=== PATIENT | female | born 1995 | race African-American/Black ===

== ENCOUNTER 2017-08-21 03:43 | Emergency (ER) | payer OTHER ==
[~2017-08-21] VITALS: Ht 175.3 cm; Wt 77.3 kg
[2017-08-21 03:50] VITALS: Ht 175.3 cm; Wt 77.3 kg
[2017-08-21] MEDS ORDERED: KETOROLAC TROMETHAMINE 30 MG/ML VIAL IV STA (04:22)
--- NOTE | 2017-08-21 04:25 | EMERGENCY ROOM VISIT NOTE ---
History Report prepared by Abril: Ann Rivera Under the Supervision of: Dr. Mayra Mcdaniel D.O. First contact with patient: 03:59 Chief Complaint: ABDOMINAL PAIN Stated Complaint: UPPER STOMACH PAIN/BACK PAIN History of Present Illness The patient is a 21 year old female who presents to the Emergency Room with complaints of abdominal pain and back pain beginning at 2200 last night. The patient notes the pain is severe, is in the right upper quadrant, and radiates to her back. She states she had a similar pain like this five years ago and it was kidney stones. She denies any diarrhea, vomiting, and alcohol use. Her LNMP was about 2 weeks ago. Source of History: patient Onset: 2200 last night Position: abdomen (RUQ) Quality: other (severe) Associated Symptoms: No vomiting, No diarrhea Note: Denies alcohol use Review of Systems See HPI for pertinent positives & negatives. A total of 10 systems reviewed and were otherwise negative. Past Medical & Surgical No past medical or surgical history. Family History No pertinent family history Social History Smoking Status: Never Smoker Occupation Status: student Current/Historical Medications Scheduled Control Pills ( Control Pills), 1 TAB PO DAILY Allergies Coded Allergies: No Known Allergies (Unverified , 08/21/17) Physical Exam Vital Signs Date Time Temp Pulse Resp B/P (MAP) Pulse Ox O2 Delivery O2 Flow Rate FiO2 08/21/17 06:00 74 18 148/78 98 Room Air 08/21/17 05:29 83 18 123/83 98 08/21/17 04:29 36.8 89 18 137/78 99 Room Air 08/21/17 03:50 36.8 105 18 141/81 99 Room Air Physical Exam General: Appears uncomfortable HEENT: Head - and is normocephalic and atraumatic Pupils are equal, round, and reactive to light. Extraocular eye muscles are intact, and sclera are anicteric. Nose - moist nasal mucosa without discharge. Mouth - moist buccal mucosa. Oropharynx is nonerythematous and there is no tonsillar exudate or edema noted. Neck: Supple; no JVD, nuchal rigidity, cervical lymphadenopathy. Heart: Regular rate and rhythm. There is a normal S1 and S2 with no murmurs, clicks, or gallops appreciated. Lungs: Clear to auscultation bilaterally with no wheezes, rales, or rhonchi. Abdomen: Soft, nondistended, with good bowel sounds. There are no palpable pulsatile masses or hepatosplenomegaly. There is no guarding, rigidity, or rebound noted. Pain to palpation to the epigastrium of her abdomen and upper quadrant. No CVA tenderness Extremities: No evidence of cyanosis, clubbing, or edema. There are easily palpable peripheral pulses. Skin: warm and dry with good turgor and no rashes. Medical Decision & Procedures ER Provider Diagnostic Interpretation: Radiology results as stated below per my review and the radiologist's interpretation: US GALLBLADDER Gallstones. No sonographic evidence of acute cholecystis. Negative sonographic Cunningham's sign. Common bile duct is within normal limits measuring up to 3 mm. The liver and right kidney are unremarkable. Radiologist: Jigar Robin MD. Study ready at 0455 and initial results transmitted at 0519. Laboratory Results 08/21/17 04:10 Red Blood Count 4.60, Mean Corpuscular Volume 87.0, Mean Corpuscular Hemoglobin 29.6, Mean Corpuscular Hemoglobin Concent 34.0, Mean Platelet Volume 11.4 08/21/17 04:10 Test 08/21/17 04:10 White Blood Count 7.91 K/uL (4.8-10.8) Red Blood Count 4.60 M/uL (4.2-5.4) Hemoglobin 13.6 g/dL (12.0-16.0) Hematocrit 40.0 % (37-47) Mean Corpuscular Volume 87.0 fL (80-100) Mean Corpuscular Hemoglobin 29.6 pg (25-34) Mean Corpuscular Hemoglobin Concent 34.0 g/dl (32-36) Platelet Count 244 K/uL (130-400) Mean Platelet Volume 11.4 fL (7.4-10.4) RDW Standard Deviation 40.9 fL (36.4-46.3) RDW Coefficient of Variation 12.8 % (11.5-14.5) Neutrophils % (Manual) 34.0 % Lymphocytes % (Manual) 33.9 % Variant Lymphocytes % (manual) 20.0 % Monocytes % (Manual) 7.8 % Eosinophils % (Manual) 2.6 % Basophils % (Manual) 1.7 % Neutrophils # (Manual) 2.69 K/uL (1.4-6.5) Total Absolute Neutrophils 2.69 K/uL (1.4-6.5) Lymphocytes # (Manual) 2.68 K/uL (1.2-3.4) Absolute Variant Lymphocytes 1.58 K/uL Total Absolute Lymphocytes 4.26 K/uL (1.2-3.4) Monocytes # (Manual) 0.62 K/uL (0.11-0.59) Eosinophils # (Manual) 0.21 K/uL (0-0.5) Basophils # (Manual) 0.13 K/uL (0-0.2) Red Blood Cell Morphology Unremarkable Urine Color YELLOW Urine Appearance CLEAR (CLEAR) Urine pH 7.5 (4.5-7.5) Urine Specific [place] 1.009 (1.000-1.030) Urine Protein NEG (NEG) Urine Glucose (UA) NEG (NEG) Urine Ketones NEG (NEG) Urine Occult Blood NEG (NEG) Urine Nitrite NEG (NEG) Urine Bilirubin NEG (NEG) Urine Urobilinogen NEG (NEG) Urine Leukocyte Esterase NEG (NEG) Urine Test NEG (NEG) Anion Gap 5.0 mmol/L (3-11) Est Creatinine Clear Calc Drug Dose 99.2 ml/min Estimated GFR () 101.1 Estimated GFR (Non- 87.2 BUN/Creatinine Ratio 17.3 (10-20) Calcium Level 9.0 mg/dl (8.5-10.1) Total Bilirubin 0.2 mg/dl (0.2-1) Direct Bilirubin < 0.1 mg/dl (0-0.2) Aspartate Amino Transf (AST/SGOT) 34 U/L (15-37) Alanine Aminotransferase (ALT/SGPT) 42 U/L (12-78) Alkaline Phosphatase 87 U/L (45-117) Total Protein 8.6 gm/dl (6.4-8.2) Albumin 4.1 gm/dl (3.4-5.0) Lipase 360 U/L (73-393) Laboratory results per my review. Medications Administered Medications (Trade) Dose Ordered Sig/[place] Route Start Time Stop Time Status Last Admin Dose Admin Ketorolac Tromethamine (Toradol Inj) 30 mg NOW STAT IV 08/21/17 04:22 08/21/17 04:24 DC 1/28/18 04:28 30 MG Procedure Toradol IV ED Course 0415: Past medical records reviewed. The patient was evaluated in room B8. A complete history and physical exam was performed. IV line was established. Labs were drawn as above. 0422: Toradol Inj 30 mg IV. The patient went for ultrasound of the gallbladder asked described above. 0559: Upon reevaluation, the patient feels much better. I discussed findings and results with her. She verbalized agreement of the treatment plan. She was discharged home. Medical Decision The patient is a 21 year old female who presents to the ED with abdominal pain. Differential diagnosis includes gallbladder disease, kidney stones, pancreatitis , ulcerative disease. Lab results show urinalysis was negative. Urine negative. No leukocytosis, Stable H & and H, normal renal function. Glucose 117. Normal LFTs. Normal lipase. This is a 21-year-old female patient who developed epigastric abdominal pain and right upper quadrant abdominal pain earlier this evening. The patient also noted some pain through the right side of her back. She has had a previous kidney stone thought this might be what was happening. The pain was reproducible in the epigastrium and therefore I did not suspect a kidney stone. Pancreatic enzymes are unremarkable. Gallbladder ultrasound was normal. Upon reevaluation of the patient, her pain has subsided. I encouraged patient to rest and take a bland diet over the next couple of days. She should return here to the emergency department if she develops worsening pain, vomiting or fever. Otherwise, she can follow up with her PCP. Medication Reconcilliation Current Medication List: was personally reviewed by me Blood Pressure Screening Patient's blood pressure: Normal blood pressure Impression Primary Impression: Right upper quadrant abdominal pain Scribe Attestation The scribe's documentation has been prepared under my direction and personally reviewed by me in its entirety. I confirm that the note above accurately reflects all work, treatment, procedures, and medical decision making performed by me. Departure Information Dispostion Home / Self-Care Referrals No Doctor, Assigned (PCP) Forms HOME CARE DOCUMENTATION FORM, IMPORTANT VISIT INFORMATION Patient Instructions My [facility] Incentive Additional Instructions Rest. Take a bland diet. Return to the ER for worsening symptoms. Follow up with PCP if pain persists
[2017-08-21 04:29] VITALS: TEMP 36.8
[2017-08-21 04:58] LABS: HEMOGLOBIN 13.6 g/dL (12.0-16.0); MEAN CORPUSCULAR HEMOGLOBIN 29.6 pg (25-34); MEAN PLATELET VOLUME 11.4 fL (7.4-10.4); PLATELET COUNT 244 K/uL (130-400); RED CELL DISTRIBUTION WIDTH CV 12.8 % (11.5-14.5); RED CELL DISTRIBUTION WIDTH SD 40.9 fL (36.4-46.3); WHITE BLOOD COUNT 7.91 K/uL (4.8-10.8)
[2017-08-21 05:08] LABS: ALBUMIN 4.1 gm/dl (3.4-5.0); ALT/SGPT 42 U/L (12-78); AST/SGOT 34 U/L (15-37); BLOOD UREA NITROGEN 16 mg/dl (7-18); CARBON DIOXIDE 29 mmol/L (21-32); CREATININE 0.93 mg/dl (0.60-1.20); GLUCOSE 117 mg/dl (70-99); LIPASE 360 U/L (73-393); POTASSIUM 3.6 mmol/L (3.5-5.1); SODIUM 136 mmol/L (136-145)
[2017-08-21 05:11] LABS: ALKALINE PHOSPHATASE 87 U/L (45-117); TOTAL PROTEIN 8.6 gm/dl (6.4-8.2)
[2017-08-21] MEDS ORDERED: BCPILLS PO (05:27)
[2017-08-21 06:00] VITALS: BP 148/78; PULSE 74; O2SAT 98
--- NOTE | 2017-08-21 10:19 | DIAGNOSTIC IMAGING REPORT ---
ABDOMINAL ULTRASOUND, RIGHT UPPER QUADRANT HISTORY: Upper abdominal pain. COMPARISON: None. FINDINGS: The liver is sonographically normal. There is no biliary ductal dilatation. The common bile duct measures 3 mm in caliber. There are numerous gallstones within the gallbladder. There is no gallbladder wall thickening. There is no pericholecystic fluid. No sonographic Cunningham sign was reported. The pancreatic body is normal. The head and tail are slightly obscured. There is no right hydronephrosis. IMPRESSION: 1. Cholelithiasis. No sonographic evidence of acute cholecystitis. 2. No biliary ductal dilatation. Electronically signed by: Piter Soto M.D. 08/21/2017 10:18 AM Dictated Date/Time: 08/21/2017 10:17 AM
== END 2017-08-21 06:25 | disposition home or self-care (01) ==
LOC: C.EDB 03:46
DX: R10.11 Right upper quadrant pain (principal); Z79.3 Long term (current) use of hormonal contraceptives

== ENCOUNTER 2017-08-24 13:57 | Observation (INO) | payer OTHER ==
[~2017-08-24] VITALS: Ht 175.3 cm; Wt 76.2 kg
[~2017-08-24 13:57] MED LIST: BCPILLS PO
[2017-08-24] MEDS ORDERED: SODIUM CHLORIDE 0.9% 500ML 500 ML IV STA (14:19)
[2017-08-24] MEDS ORDERED: KETOROLAC TROMETHAMINE 30 MG/ML VIAL IV STA (14:19)
[2017-08-24] MEDS ORDERED: ONDANSETRON INJ 2 MG/ML 2 ML VIAL IV STA (14:19)
[2017-08-24 14:57] LABS: BASO % 0.3 %; BASO ABS # 0.02 K/uL (0-0.2); EOS % 0.3 %; EOS ABS # 0.02 K/uL (0-0.5); HEMOGLOBIN 13.3 g/dL (12.0-16.0); IG# 0.01 K/uL (0.00-0.02); LYMPH % 31.9 %; LYMPH ABS # 2.45 K/uL (1.2-3.4); MEAN CELL VOLUME 86.9 fL (80-100); MEAN CORPUSCULAR HEMOGLOBIN 29.6 pg (25-34); MEAN CORPUSCULAR HGB CONC 34.1 g/dl (32-36); MEAN PLATELET VOLUME 11.2 fL (7.4-10.4); MONO % 9.2 %; MONO ABS # 0.71 K/uL (0.11-0.59); NEUT % 58.2 %; NEUT ABS # 4.48 K/uL (1.4-6.5); PLATELET COUNT 226 K/uL (130-400); RED CELL DISTRIBUTION WIDTH CV 12.9 % (11.5-14.5); WHITE BLOOD COUNT 7.69 K/uL (4.8-10.8)
[2017-08-24 15:16] LABS: ALBUMIN 3.7 gm/dl (3.4-5.0); CALCIUM 9.5 mg/dl (8.5-10.1); CREATININE 0.82 mg/dl (0.60-1.20); POTASSIUM 3.9 mmol/L (3.5-5.1)
[2017-08-24 15:19] LABS: TOTAL PROTEIN 8.1 gm/dl (6.4-8.2)
--- NOTE | 2017-08-24 15:23 | EMERGENCY ROOM VISIT NOTE ---
History First contact with patient: 14:06 Chief Complaint: ABDOMINAL PAIN Stated Complaint: ABDOMINAL PAIN Nursing Triage Summary: patient was seen here this past weekend with abdominal pain. the pain is in the right side of the abdomen. nausea but not vomiting.states that bowel movements are normal History of Present Illness The patient is a 21 year old female who presents to the Emergency Room with complaints of epigastric abdominal pain that she describes as sharp, stabbing sensation that radiates to her back. This is been going on for approximately 4 days. She denies any fever or chills. She does complain of nausea. No vomiting. Last bowel movement was yesterday and reportedly normal. The patient was seen here 4 days ago. She had an ultrasound and blood work. No abnormalities were noted. When the pain became more severe today, she went to [facility]. They sent her here for further evaluation. The patient also describes chest pain that started yesterday. It is in the left side of her chest. As a sharp, stabbing sensation. She denies any shortness of breath. Deep inspiration does not make it worse. She thinks that her mother has a history of blood clots. Review of Systems 10 system review performed and negative unless noted in HPI or below Past Medical/Surgical History Kidney stones Stomach ulcers Family History No pertinent family history Social History Smoking Status: Never Smoker Occupation Status: student Current/Historical Medications Scheduled Control Pills ( Control Pills), 1 TAB PO DAILY Physical Exam Vital Signs Date Time Temp Pulse Resp B/P (MAP) Pulse Ox O2 Delivery O2 Flow Rate FiO2 08/24/17 19:14 115 08/24/17 19:02 76 18 122/76 100 Room Air 08/24/17 16:15 80 16 137/79 99 Room Air 08/24/17 14:35 82 08/24/17 14:02 36.8 93 16 139/87 99 Room Air Physical Exam VITALS: Vitals are noted on the nurse's note and reviewed by myself. Vital signs stable. GENERAL: 21-year-old female, in no acute distress, nondiaphoretic, well- developed well-nourished. SKIN: The skin was without rashes, erythema, edema, or bruising. HEAD: Normocephalic atraumatic. MOUTH: Mucous membranes moist. NECK: Supple without nuchal rigidity.. No JVD. HEART: Regular rate and rhythm without murmurs gallops or rubs. LUNGS: Clear to auscultation bilaterally without wheezes, rales or rhonchi. No accessory muscle use. ABDOMEN: Positive bowel sounds x 4.Soft, tenderness to palpation in the epigastric and left lower quadrant. Without organomegaly. No guarding or rebound tenderness. MUSCULOSKELETAL: No muscle atrophy, erythema, or edema noted. Strength 5/5 throughout. NEURO: Patient was alert and oriented to person place and time. Normal sensation to touch. No focal neurological deficits. Medical Decision & Procedures ER Provider Diagnostic Interpretation: CT abdomen and pelvis with IV and oral contrast IMPRESSION: Gallstones were seen by ultrasound and the CT findings are highly concerning for acute cholecystitis. Surgical consultation is advised. Electronically signed by: Gino Corado M.D. 08/24/2017 6:26 PM Dictated Date/Time: 08/24/2017 6:19 PM Laboratory Results 08/24/17 13:46 Red Blood Count 4.49, Mean Corpuscular Volume 86.9, Mean Corpuscular Hemoglobin 29.6, Mean Corpuscular Hemoglobin Concent 34.1, Mean Platelet Volume 11.2, Neutrophils (%) (Auto) 58.2, Lymphocytes (%) (Auto) 31.9, Monocytes (%) (Auto) 9.2, Eosinophils (%) (Auto) 0.3, Basophils (%) (Auto) 0.3, Neutrophils # (Auto) 4.48, Lymphocytes # (Auto) 2.45, Monocytes # (Auto) 0.71, Eosinophils # (Auto) 0.02, Basophils # (Auto) 0.02 08/24/17 13:46 Test 08/24/17 13:46 08/24/17 14:25 White Blood Count 7.69 K/uL (4.8-10.8) Red Blood Count 4.49 M/uL (4.2-5.4) Hemoglobin 13.3 g/dL (12.0-16.0) Hematocrit 39.0 % (37-47) Mean Corpuscular Volume 86.9 fL (80-100) Mean Corpuscular Hemoglobin 29.6 pg (25-34) Mean Corpuscular Hemoglobin Concent 34.1 g/dl (32-36) Platelet Count 226 K/uL (130-400) Mean Platelet Volume 11.2 fL (7.4-10.4) Neutrophils (%) (Auto) 58.2 % Lymphocytes (%) (Auto) 31.9 % Monocytes (%) (Auto) 9.2 % Eosinophils (%) (Auto) 0.3 % Basophils (%) (Auto) 0.3 % Neutrophils # (Auto) 4.48 K/uL (1.4-6.5) Lymphocytes # (Auto) 2.45 K/uL (1.2-3.4) Monocytes # (Auto) 0.71 K/uL (0.11-0.59) Eosinophils # (Auto) 0.02 K/uL (0-0.5) Basophils # (Auto) 0.02 K/uL (0-0.2) RDW Standard Deviation 41.0 fL (36.4-46.3) RDW Coefficient of Variation 12.9 % (11.5-14.5) Immature Granulocyte % (Auto) 0.1 % Immature Granulocyte # (Auto) 0.01 K/uL (0.00-0.02) D-Dimer 320 ug/L FEU (0-500) Anion Gap 6.0 mmol/L (3-11) Est Creatinine Clear Calc Drug Dose 112.5 ml/min Estimated GFR () 117.7 Estimated GFR (Non- 101.6 BUN/Creatinine Ratio 13.5 (10-20) Calcium Level 9.5 mg/dl (8.5-10.1) Total Bilirubin 0.6 mg/dl (0.2-1) Aspartate Amino Transf (AST/SGOT) 21 U/L (15-37) Alanine Aminotransferase (ALT/SGPT) 30 U/L (12-78) Alkaline Phosphatase 56 U/L (45-117) Troponin I < 0.015 ng/ml (0-0.045) Total Protein 8.1 gm/dl (6.4-8.2) Albumin 3.7 gm/dl (3.4-5.0) Globulin 4.4 gm/dl (2.5-4.0) Albumin/Globulin Ratio 0.8 (0.9-2) Lipase 235 U/L (73-393) Urine Color YELLOW Urine Appearance CLEAR (CLEAR) Urine pH 6.5 (4.5-7.5) Urine Specific [place] 1.022 (1.000-1.030) Urine Protein NEG (NEG) Urine Glucose (UA) NEG (NEG) Urine Ketones NEG (NEG) Urine Occult Blood NEG (NEG) Urine Nitrite NEG (NEG) Urine Bilirubin NEG (NEG) Urine Urobilinogen NEG (NEG) Urine Leukocyte Esterase TRACE (NEG) Urine WBC (Auto) 1-5 /hpf (0-5) Urine RBC (Auto) 0-4 /hpf (0-4) Urine Hyaline Casts (Auto) 1-5 /lpf (0-5) Urine Epithelial Cells (Auto) >30 /lpf (0-5) Urine Bacteria (Auto) 1+ (NEG) Urine Test NEG (NEG) Medications Administered Medications (Trade) Dose Ordered Sig/[place] Route Start Time Stop Time Status Last Admin Dose Admin Ketorolac Tromethamine (Toradol Inj) 30 mg NOW STAT IV 08/24/17 14:19 08/24/17 14:21 DC 08/24/17 14:58 30 MG Sodium Chloride 500 ml @ 999 mls/hr Q31M STAT IV 08/24/17 14:19 08/24/17 14:49 DC 08/24/17 14:57 999 MLS/HR Ondansetron HCl (Zofran Inj) 4 mg NOW STAT IV 08/24/17 14:19 08/24/17 14:21 DC 08/24/17 14:58 4 MG ECG Indication: chest pain Rate (beats per minute): 82 ED Course Patient was seen and examined Vital signs including blood pressure were reviewed medications list was verified with patient Labs were obtained, and a saline lock was established An EKG was performed and reviewed by myself. She was put on a monitor. The patient was given Toradol 30 mg IV and Zofran 4 mg IV for her symptoms. She was hydrated with 500 mL normal saline. Upon reevaluation, the patient's pain was much improved. We reviewed her test results. She was tearful. The case was discussed with Dr. Gambino from general surgery. She was given 1 dose of Unasyn 3 g IV. The patient will be admitted for further treatment. Medical Decision DIFFERENTIAL DIAGNOSIS: Gastroenteritis, Hepatitis, cholecystitis, cholangitis, biliary colic, pancreatitis, appendicitis, inguinal hernia, nephrolithiasis, inflammatory bowel disease, mesenteric adenitis, peptic ulcer disease, GERD, gastritis, pancreatitis,, bowel obstruction, splenic infarct, diverticulitis, mesenteric ischemia, metabolic, peritonitis, pulmonary embolus, Acute myocardial infarction, cardiac arrhythmia, anemia, pneumothorax, pneumonia, bronchitis, pericarditis, electrolyte imbalance This patient is a 21-year-old female that presents to emergency department with epigastric abdominal pain, nausea and chest pain. On exam, she was tender in the epigastric region. I ordered a CT of the abdomen and pelvis. This is highly suspicious for acute cholecystitis. The case was discussed with general surgery. She was started on IV antibiotics. The patient will be admitted for a cholecystectomy in the morning. I believe her chest pain is likely radiation from her gallbladder. Her EKG shows normal sinus rhythm with no signs of ischemia. Her troponin is negative. Her d-dimer is negative. I believe she is stable from a cardiac/pulmonary standpoint. This chart was completed in part utilizing [employer] Speech Voice Recognition software. Attempts were made to minimize the grammatical errors, random word insertions, pronoun errors and incomplete sentences. Any formal questions or concerns about the content, text or information contained within the body of this dictation should be directly addressed to the provider for clarification. Impression Primary Impression: Acute cholecystitis Departure Information Referrals No Doctor, Assigned (PCP) Patient Instructions My [facility]
[2017-08-24] MEDS ORDERED: OPTIRAY 320 IV PRN (15:45)
--- NOTE | 2017-08-24 18:28 | DIAGNOSTIC IMAGING REPORT ---
CT SCAN OF THE ABDOMEN AND PELVIS WITH IV CONTRAST CLINICAL HISTORY: Epigastric abdominal pain. Nausea and fever. COMPARISON STUDY: Abdominal ultrasound dated 08/21/2017. TECHNIQUE: Following the IV administration of 94 cc of Optiray 320, CT scan of the abdomen and pelvis is performed from the lung bases to the proximal femora. Images are reviewed in the axial, sagittal, and coronal planes. IV contrast was administered without complication. A dose lowering technique was utilized adhering to the principles of ALARA. CT DOSE: 325.46 mGy.cm FINDINGS: Lung bases: The heart is normal in size and without pericardial effusion. The lung bases are clear. Liver: The contrast-enhanced liver is normal in size, contour, and attenuation. There is no intrahepatic biliary ductal dilatation. The hepatic veins and portal veins are patent. Gallbladder: The gallbladder wall is distended. The gallbladder wall appears thickened and edematous. The findings are highly concerning for acute cholecystitis. Spleen: Normal in size and attenuation. Pancreas: Unremarkable. Adrenal glands: Unremarkable. Kidneys: The contrast enhanced kidneys are normal in size and without hydronephrosis. The kidneys enhance symmetrically. Abdominal vasculature: The abdominal aorta is normal in course and caliber. Bowel: The small bowel and colon are normal in course and caliber. The appendix is well-visualized and normal. Peritoneum: There is no intraperitoneal free air or abdominal ascites. Lymphadenopathy: None. Pelvic viscera: The bladder is decompressed and not well evaluated. Uterus and adnexa are normal as visualized. There are bilateral ovarian follicles. Skeletal structures: No lytic or blastic lesions are seen. IMPRESSION: Gallstones were seen by ultrasound and the CT findings are highly concerning for acute cholecystitis. Surgical consultation is advised. Electronically signed by: Gino Corado M.D. 08/24/2017 6:26 PM Dictated Date/Time: 08/24/2017 6:19 PM
[2017-08-24] MEDS ORDERED: NURSING VERBAL MED ORDER ONE (19:30)
[2017-08-24] MEDS ORDERED: AMPICILLIN/SULBACTAM SOD INJ 3,000 MG in SODIUM CHLORIDE 0.9% 100ML 100 ML IV STA (19:35)
[2017-08-24] MEDS ORDERED: IV FLUIDS COMPLETED PRN (20:00)
[2017-08-24] MEDS ORDERED: MoRPHine SULFATE 2 MG/ML CARP IV PRN (20:15)
[2017-08-24] MEDS ORDERED: ONDANSETRON INJ 2 MG/ML 2 ML VIAL IV PRN (20:15)
[2017-08-24 20:31] VITALS: O2SAT 100
[2017-08-24 20:43] VITALS: BP 129/83; PULSE 89; TEMP 36.5; O2SAT 98
[2017-08-24] MEDS: LACTATED RINGER'S 1000ML 1,000 ML IV SCH (22:23)
[2017-08-24 23:35] VITALS: BP 116/71; PULSE 84; TEMP 37; O2SAT 98
[2017-08-25 00:50] VITALS: Ht 175.3 cm; Wt 76.2 kg
[2017-08-25] MEDS: AMPICILLIN/SULBACTAM SOD INJ 1,500 MG in SODIUM CHLORIDE 0.9% 100ML 100 ML IV SCH ×3 (01:38→14:00)
[2017-08-25] MEDS ORDERED: NURSING VERBAL MED ORDER ONE (07:15)
[2017-08-25 07:22] VITALS: BP 106/65; PULSE 88; TEMP 36.9; O2SAT 98
[2017-08-25] MEDS: LACTATED RINGER'S 1000ML 1,000 ML IV SCH ×2 (08:38→17:39)
[2017-08-25] MEDS ORDERED: LIDOCAINE HCL 2% 2 ML VIAL (20MG/ML) ONE ×2 (09:32→10:45)
[2017-08-25] MEDS ORDERED: SUCCINYLCHOLINE 100MG/5ML SYR IV ONE (09:32)
[2017-08-25] MEDS ORDERED: PROPOFOL IV EMULSION 10 MG/ML 20 ML VIAL IV ONE ×2 (09:32→10:45)
[2017-08-25] MEDS ORDERED: FENTANYL CITRATE INJ 50 MCG/1 ML 2 ML VIAL ONE ×3 (09:32→10:44)
[2017-08-25] MEDS ORDERED: CISATRACURIUM BESYLATE IV SOLN 2 MG/ML 10 ML VIAL ONE (09:32)
[2017-08-25] MEDS ORDERED: ONDANSETRON INJ 2 MG/ML 2 ML VIAL ONE ×2 (09:32→10:45)
[2017-08-25] MEDS ORDERED: MIDAZOLAM HCL 1 MG/ML 2ML VIAL ONE ×2 (09:33→10:44)
--- NOTE | 2017-08-25 09:35 | History and Physical ---
History & Physical Date & Time of Service: Aug 25, 2017 at 09:23 Chief Complaint: Cholecystitis Primary Care Physician: [facility] History of Present Illness Source: patient Pepper Bob is a pleasant 21 year-old female who originally presented to emergency room on Tuesday08/21/2017 with complaint of RUQ/epigastric abdominal pain with radiation to her back starting 10 pm on Tuesday. Associated nausea but no vomiting. States she had diarrhea starting on Tuesday as well. In normal state of health prior to Tuesday. Denies of any previous history of gallbladder problems or similar symptoms. She underwent ultrasound in the ER which showed cholelithiasis however no acute cholecystitis. Laboratory work-up within normal limits. She then presented back to emergency room last evening with the same complaint. Abdominal pain rated 8/10. Pain subsided on Tuesday but then came back again on Tuesday. Had Pizza one day. Occasional fatty/ greasy meals in the diet. History of kidney stones and gastric ulcer. No family history of gallbladder problems. Laboratory work-up in the ER again showed no leukocytosis, LFTS within normal limits. CT scan showed distended gallbladder with wall thickening and edema concerning for acute cholecystitis. She did also complain of left sided chest pain in the emergency department. Describes it as dull throbbing pain that comes and goes. Denies of chest pressure, shortness of breath, difficulty breathing, or palpitations. She had an EKG in the ER which showed normal sinus rhythm and Troponin within normal limits. D-dimer within normal limits Since admission she is feeling better. Pain rated 0-1/10 currently. Received pain medication which has helped. No further nausea or vomiting. Past Medical/Surgical History Past Medical History: 1. Kidney Stones 2. PUD Past Surgical History: No past surgeries Family History No pertinent family history Social History Smoking Status: Never Smoker Occupational Status: student Allergies Coded Allergies: Ibuprofen (Unverified Allergy, Intermediate, ulcers, 08/24/17) Home Medications Scheduled Control Pills ( Control Pills), 1 TAB PO DAILY Review of Systems Constitutional: No fever, No chills, No sweats Respiratory: + shortness of breath, + dyspnea on exertion, + dyspnea at rest, No cough Cardiovascular: + chest pain (Left sided chest pain, dull), No palpitations Abdomen: + pain, + nausea, + diarrhea, No vomiting, No constipation, No GI bleeding Genitourinary - Female: No dysuria, No urinary frequency, No urinary urgency, No hematuria Hematologic / Lymphatic: No abnormal bleeding/bruising Integumentary: No rash Physical Exam Vital Signs Date Time Temp Pulse Resp B/P (MAP) Pulse Ox O2 Delivery O2 Flow Rate FiO2 08/25/17 07:22 36.9 88 15 106/65 (79) 98 Room Air 08/25/17 01:12 Room Air 08/25/17 00:50 Room Air 08/24/17 23:35 37.0 84 16 116/71 (86) 98 Room Air 08/24/17 20:43 36.5 89 16 129/83 (98) 98 Room Air 08/24/17 20:31 115 18 122/76 100 08/24/17 19:14 115 08/24/17 19:02 76 18 122/76 100 Room Air 08/24/17 16:15 80 16 137/79 99 Room Air 08/24/17 14:35 82 08/24/17 14:02 36.8 93 16 139/87 99 Room Air General Appearance: WD/WN, no apparent distress Eyes: sclerae normal ENT: hearing grossly normal Neck: trachea midline Respiratory/Chest: lungs clear, normal breath sounds, no respiratory distress, no accessory muscle use Cardiovascular: regular rate, rhythm, no murmur Abdomen/GI: soft, no organomegaly, no pulsatile mass, + tenderness ( epigastrium and RUQ on mild palpation) Back: normal inspection Extremities/Musculoskelatal: normal inspection, no pedal edema Neurologic/Psych: alert, normal mood/affect, oriented x 3 Skin: normal color, warm/dry, no rash Diagnostics Laboratory Results Results Past 24 Hours Test 08/24/17 13:46 08/24/17 14:25 Range/Units White Blood Count 7.69 4.8-10.8 K/uL Red Blood Count 4.49 4.2-5.4 M/uL Hemoglobin 13.3 12.0-16.0 g/dL Hematocrit 39.0 37-47 % Mean Corpuscular Volume 86.9 80-100 fL Mean Corpuscular Hemoglobin 29.6 25-34 pg Mean Corpuscular Hemoglobin Concent 34.1 32-36 g/dl Platelet Count 226 130-400 K/uL Mean Platelet Volume 11.2 7.4-10.4 fL Neutrophils (%) (Auto) 58.2 % Lymphocytes (%) (Auto) 31.9 % Monocytes (%) (Auto) 9.2 % Eosinophils (%) (Auto) 0.3 % Basophils (%) (Auto) 0.3 % Neutrophils # (Auto) 4.48 1.4-6.5 K/uL Lymphocytes # (Auto) 2.45 1.2-3.4 K/uL Monocytes # (Auto) 0.71 0.11-0.59 K/uL Eosinophils # (Auto) 0.02 0-0.5 K/uL Basophils # (Auto) 0.02 0-0.2 K/uL RDW Standard Deviation 41.0 36.4-46.3 fL RDW Coefficient of Variation 12.9 11.5-14.5 % Immature Granulocyte % (Auto) 0.1 % Immature Granulocyte # (Auto) 0.01 0.00-0.02 K/uL D-Dimer 320 0-500 ug/L FEU Sodium Level 136 136-145 mmol/L Potassium Level 3.9 3.5-5.1 mmol/L Chloride Level 102 98-107 mmol/L Carbon Dioxide Level 28 21-32 mmol/L Anion Gap 6.0 3-11 mmol/L Blood Urea Nitrogen 11 7-18 mg/dl Creatinine 0.82 0.60-1.20 mg/dl Est Creatinine Clear Calc Drug Dose 112.5 ml/min Estimated GFR () 117.7 Estimated GFR (Non- 101.6 BUN/Creatinine Ratio 13.5 10-20 Random Glucose 94 70-99 mg/dl Calcium Level 9.5 8.5-10.1 mg/dl Total Bilirubin 0.6 0.2-1 mg/dl Aspartate Amino Transf (AST/SGOT) 21 15-37 U/L Alanine Aminotransferase (ALT/SGPT) 30 12-78 U/L Alkaline Phosphatase 56 45-117 U/L Troponin I < 0.015 0-0.045 ng/ml Total Protein 8.1 6.4-8.2 gm/dl Albumin 3.7 3.4-5.0 gm/dl Globulin 4.4 2.5-4.0 gm/dl Albumin/Globulin Ratio 0.8 0.9-2 Lipase 235 73-393 U/L Urine Color YELLOW Urine Appearance CLEAR CLEAR Urine pH 6.5 4.5-7.5 Urine Specific [place] 1.022 1.000-1.030 Urine Protein NEG NEG Urine Glucose (UA) NEG NEG Urine Ketones NEG NEG Urine Occult Blood NEG NEG Urine Nitrite NEG NEG Urine Bilirubin NEG NEG Urine Urobilinogen NEG NEG Urine Leukocyte Esterase TRACE NEG Urine WBC (Auto) 1-5 0-5 /hpf Urine RBC (Auto) 0-4 0-4 /hpf Urine Hyaline Casts (Auto) 1-5 0-5 /lpf Urine Epithelial Cells (Auto) >30 0-5 /lpf Urine Bacteria (Auto) 1+ NEG Urine Test NEG NEG Diagnostic Radiology CT SCAN OF THE ABDOMEN AND PELVIS WITH IV CONTRAST CLINICAL HISTORY: Epigastric abdominal pain. Nausea and fever. COMPARISON STUDY: Abdominal ultrasound dated 08/21/2017. TECHNIQUE: Following the IV administration of 94 cc of Optiray 320, CT scan of the abdomen and pelvis is performed from the lung bases to the proximal femora. Images are reviewed in the axial, sagittal, and coronal planes. IV contrast was administered without complication. A dose lowering technique was utilized adhering to the principles of ALARA. CT DOSE: 325.46 mGy.cm FINDINGS: Lung bases: The heart is normal in size and without pericardial effusion. The lung bases are clear. Liver: The contrast-enhanced liver is normal in size, contour, and attenuation. There is no intrahepatic biliary ductal dilatation. The hepatic veins and portal veins are patent. Gallbladder: The gallbladder wall is distended. The gallbladder wall appears thickened and edematous. The findings are highly concerning for acute cholecystitis. Spleen: Normal in size and attenuation. Pancreas: Unremarkable. Adrenal glands: Unremarkable. Kidneys: The contrast enhanced kidneys are normal in size and without hydronephrosis. The kidneys enhance symmetrically. Abdominal vasculature: The abdominal aorta is normal in course and caliber. Bowel: The small bowel and colon are normal in course and caliber. The appendix is well-visualized and normal. Peritoneum: There is no intraperitoneal free air or abdominal ascites. Lymphadenopathy: None. Pelvic viscera: The bladder is decompressed and not well evaluated. Uterus and adnexa are normal as visualized. There are bilateral ovarian follicles. Skeletal structures: No lytic or blastic lesions are seen. IMPRESSION: Gallstones were seen by ultrasound and the CT findings are highly concerning for acute cholecystitis. Surgical consultation is advised. EKG Normal sinus rhythm Normal ECG No previous ECGs available Confirmed by Peter Jorgensen ([id number]) on 08/24/2017 3:08:55 PM Normal EKG Impression Assessment and Plan 21 year-old female who presented to emergency department originally on Tuesday and last evening with complaint of epigastric/ruq pain with radiation to back , nausea, and diarrhea. CT scan showing distended gallbladder with wall thickening and edema concerning for acute cholecystitis. Labs show no leukocytosis and LFTS, total bilirubin, lipase within normal limits. Consistent with acute calculous cholecystitis without obstruction. Examination proves RUQ and epigastric tenderness on palpation. Plan: Patient admitted to medical surgical floor for observation. IV fluids, IV antibiotics, IV pain medication prn, IV Zofran. Discussed imaging findings concerning for acute cholecystitis and recommendation of laparoscopic cholecystectomy. Discussed procedure and risks, including bleeding, infection, injury to surrounding organs/tissues, bile leak, bile duct injury. Informed consent obtained Dr. Willard has seen patient, agrees with above. See also his surgical consultation. Advanced Directives Existing Living Will: No Existing Power of Conventions Assistant: No VTE Prophylaxis VTE Risk Assessment Done? Y/N: No
[2017-08-25] MEDS ORDERED: CONRAY 60% 50 ML VIAL ONE (09:57)
[2017-08-25] MEDS ORDERED: LIDOCAINE HCL 1% 20 ML VIAL ONE (09:57)
[2017-08-25] MEDS ORDERED: BUPIVACAINE 0.5 % 5 MG/1 ML MPF 30ML VIAL ONE (09:57)
[2017-08-25] MEDS ORDERED: BACITRACIN OINT 15 GM TUBE ONE (09:57)
--- NOTE | 2017-08-25 10:02 | History & Physical Bridge Note ---
H&P Re-Evaluation Bridge Note: I have examined the patient, reviewed the History & Physical and in the interval since the performance of the History & Physical I have noted the following changes of clinical significance: No changes noted
--- NOTE | 2017-08-25 10:14 | Surgery Consultation ---
Consultation Date of Consultation: Aug 25, 2017. Attending Physician: Lauren Gambino MD History of Present Illness Pepper Bob is a pleasant 21 year-old female who originally presented to emergency room on Tuesday08/21/2017 with complaint of RUQ/epigastric abdominal pain with radiation to her back starting 10 pm on Tuesday. Associated nausea but no vomiting. States she had diarrhea starting on Tuesday as well. In normal state of health prior to Tuesday. Denies of any previous history of gallbladder problems or similar symptoms. She underwent ultrasound in the ER which showed cholelithiasis however no acute cholecystitis. Laboratory work-up within normal limits. She then presented back to emergency room last evening with the same complaint. Abdominal pain rated 8/10. Pain subsided on Tuesday but then came back again on Tuesday. Had Pizza one day. Occasional fatty/ greasy meals in the diet. History of kidney stones and gastric ulcer. No family history of gallbladder problems. Laboratory work-up in the ER again showed no leukocytosis, LFTS within normal limits. CT scan showed distended gallbladder with wall thickening and edema concerning for acute cholecystitis. She did also complain of left sided chest pain in the emergency department. Describes it as dull throbbing pain that comes and goes. Denies of chest pressure, shortness of breath, difficulty breathing, or palpitations. She had an EKG in the ER which showed normal sinus rhythm and Troponin within normal limits. D-dimer within normal limits Since admission she is feeling better. Pain rated 0-1/10 currently. Received pain medication which has helped. No further nausea or vomiting. I saw pt and reviewed pt's H/P with pt, pt is still have RUQ pain, CT scan- acute cholecystitis, Past Medical/Surgical History Medical Problems: (1) Acute cholecystitis Status: Acute (2) Right upper quadrant abdominal pain Status: Acute Family History No pertinent family history Social History Smoking Status: Never Smoker Smokeless Tobacco Use: No Alcohol Use: none Drug Use: none Occupation Status: student Allergies Coded Allergies: Ibuprofen (Unverified Allergy, Intermediate, ulcers, 08/24/17) Home Medications Scheduled Control Pills ( Control Pills), 1 TAB PO DAILY Current Inpatient Medications Current Inpatient Medications Medications (Trade) Dose Ordered Sig/[place] Route Start Time Stop Time Status Last Admin Dose Admin Ioversol (Optiray 320) 111 ml UD PRN IV 1/31/18 15:45 08/28/17 15:44 Miscellaneous (Iv Fluids Completed) 1 ea PRN PRN N/A 08/24/17 20:00 08/24/18 19:59 Morphine Sulfate (MoRPHine SULFATE INJ) 2 mg Q2H PRN IV 08/24/17 20:15 09/07/17 20:14 Ondansetron HCl (Zofran Inj) 4 mg Q6H PRN IV 08/24/17 20:15 09/23/17 20:14 Lactated Ringer's 1,000 ml @ 100 mls/hr Q10H IV 08/24/17 21:15 09/23/17 21:14 08/25/17 08:38 100 MLS/HR Ampicillin Sodium/ Sulbactam Sodium 1500 mg/Sodium Chloride 104 ml @ 208 mls/hr Q6H IV 08/25/17 02:00 09/04/17 01:59 08/25/17 08:38 208 MLS/HR Review of Systems Constitutional: No fever, No chills, No sweats, No weight loss, No weakness, No fatigue, No problem reported Eyes: No worsening of vision, No eye pain, No redness, No discharge, No diplopia, No problem reported ENT: No hearing loss, No unusual epistaxis, No nasal symptoms, No sore throat, No tinnitus, No dental problems, No trouble swallowing, No problem reported Respiratory: No cough, No sputum, No wheezing, No shortness of breath, No dyspnea on exertion, No dyspnea at rest, No hemoptysis, No problem reported Cardiovascular: No chest pain, No orthopnea, No PND, No edema, No claudication , No palpitations, No problem reported Abdomen: + pain, + nausea Musculoskeletal: No joint pain, No muscle pain, No swelling, No calf pain, No problem reported Genitourinary - Female: No dysuria, No urinary frequency, No urinary urgency, No urinary incontinence, No urinary retention, No hematuria, No dysmenorrhea, No menorrhagia, No metrorrhagia, No rash, No vaginal bleeding, No vaginal discharge, No vaginal itching, No vulvodynia, No , No problem reported Neurologic: No memory loss, No paralysis, No weakness, No numbness/tingling, No vertigo, No balance problems, No problem reported Psychiatric: No depression symptoms, No anhedonism, No anxiety, No insomnia, No substance abuse, No problem reported Endocrine: No fatigue, No excessive thirst, No excessive urination, No problem reported Hematologic / Lymphatic: No abnormal bleeding/bruising, No clotting problems, No swollen lymph nodes, No night sweats, No problem reported Physical Exam Date Time Temp Pulse Resp B/P (MAP) Pulse Ox O2 Delivery O2 Flow Rate FiO2 08/25/17 07:22 36.9 88 15 106/65 (79) 98 Room Air 08/25/17 01:12 Room Air 08/25/17 00:50 Room Air 08/24/17 23:35 37.0 84 16 116/71 (86) 98 Room Air 08/24/17 20:43 36.5 89 16 129/83 (98) 98 Room Air 08/24/17 20:31 115 18 122/76 100 08/24/17 19:14 115 08/24/17 19:02 76 18 122/76 100 Room Air 08/24/17 16:15 80 16 137/79 99 Room Air 08/24/17 14:35 82 08/24/17 14:02 36.8 93 16 139/87 99 Room Air General Appearance: WD/WN, + mild distress Head: normocephalic Eyes: normal inspection ENT: normal ENT inspection Neck: supple, no JVD Respiratory/Chest: chest non-tender, lungs clear, normal breath sounds Cardiovascular: regular rate, rhythm, no edema, no gallop, no JVD, no murmur Abdomen/GI: normal bowel sounds, soft, no organomegaly, no pulsatile mass, + tenderness (at RUQ, no rebound pain) Extremities/Musculoskelatal: normal inspection, no calf tenderness, normal capillary refill Skin: normal color, warm/dry, no rash Lymphatic: no adenopathy Laboratory Results Last 24 Hours Test 08/24/17 13:46 08/24/17 14:25 White Blood Count 7.69 K/uL Red Blood Count 4.49 M/uL Hemoglobin 13.3 g/dL Hematocrit 39.0 % Mean Corpuscular Volume 86.9 fL Mean Corpuscular Hemoglobin 29.6 pg Mean Corpuscular Hemoglobin Concent 34.1 g/dl Platelet Count 226 K/uL Mean Platelet Volume 11.2 fL Neutrophils (%) (Auto) 58.2 % Lymphocytes (%) (Auto) 31.9 % Monocytes (%) (Auto) 9.2 % Eosinophils (%) (Auto) 0.3 % Basophils (%) (Auto) 0.3 % Neutrophils # (Auto) 4.48 K/uL Lymphocytes # (Auto) 2.45 K/uL Monocytes # (Auto) 0.71 K/uL Eosinophils # (Auto) 0.02 K/uL Basophils # (Auto) 0.02 K/uL RDW Standard Deviation 41.0 fL RDW Coefficient of Variation 12.9 % Immature Granulocyte % (Auto) 0.1 % Immature Granulocyte # (Auto) 0.01 K/uL D-Dimer 320 ug/L FEU Sodium Level 136 mmol/L Potassium Level 3.9 mmol/L Chloride Level 102 mmol/L Carbon Dioxide Level 28 mmol/L Anion Gap 6.0 mmol/L Blood Urea Nitrogen 11 mg/dl Creatinine 0.82 mg/dl Est Creatinine Clear Calc Drug Dose 112.5 ml/min Estimated GFR () 117.7 Estimated GFR (Non- 101.6 BUN/Creatinine Ratio 13.5 Random Glucose 94 mg/dl Calcium Level 9.5 mg/dl Total Bilirubin 0.6 mg/dl Aspartate Amino Transf (AST/SGOT) 21 U/L Alanine Aminotransferase (ALT/SGPT) 30 U/L Alkaline Phosphatase 56 U/L Troponin I < 0.015 ng/ml Total Protein 8.1 gm/dl Albumin 3.7 gm/dl Globulin 4.4 gm/dl Albumin/Globulin Ratio 0.8 Lipase 235 U/L Urine Color YELLOW Urine Appearance CLEAR Urine pH 6.5 Urine Specific [place] 1.022 Urine Protein NEG Urine Glucose (UA) NEG Urine Ketones NEG Urine Occult Blood NEG Urine Nitrite NEG Urine Bilirubin NEG Urine Urobilinogen NEG Urine Leukocyte Esterase TRACE Urine WBC (Auto) 1-5 /hpf Urine RBC (Auto) 0-4 /hpf Urine Hyaline Casts (Auto) 1-5 /lpf Urine Epithelial Cells (Auto) >30 /lpf Urine Bacteria (Auto) 1+ Urine Test NEG Assessment & Plan CT scan-FINDINGS: Lung bases: The heart is normal in size and without pericardial effusion. The lung bases are clear. Liver: The contrast-enhanced liver is normal in size, contour, and attenuation. There is no intrahepatic biliary ductal dilatation. The hepatic veins and portal veins are patent. Gallbladder: The gallbladder wall is distended. The gallbladder wall appears thickened and edematous. The findings are highly concerning for acute cholecystitis. Spleen: Normal in size and attenuation. Pancreas: Unremarkable. Adrenal glands: Unremarkable. Kidneys: The contrast enhanced kidneys are normal in size and without hydronephrosis. The kidneys enhance symmetrically. Abdominal vasculature: The abdominal aorta is normal in course and caliber. Bowel: The small bowel and colon are normal in course and caliber. The appendix is well-visualized and normal. Peritoneum: There is no intraperitoneal free air or abdominal ascites. Lymphadenopathy: None. Pelvic viscera: The bladder is decompressed and not well evaluated. Uterus and adnexa are normal as visualized. There are bilateral ovarian follicles. Skeletal structures: No lytic or blastic lesions are seen. IMPRESSION: Gallstones were seen by ultrasound and the CT findings are highly concerning for acute cholecystitis. Surgical consultation is advised. IMP: acute cholecystitis U/S study, if U/S comform gallstone, I recommend to do laparoscopic cholecystectomy, possible open or cholangiogram, D/W benefits, risks and alternatives of the procedure, the risks -infection, bleeding, injury CBD, bowel , biliary leak, pt understood, she agrees with the plan, I answered all questions,
[2017-08-25] MEDS ORDERED: CEFAZOLIN 2000MG IV PUSH 15 ML IV SCH (10:30)
[2017-08-25] MEDS ORDERED: NEOSTIGMINE METHYLSULFATE 5 MG/5 ML SYR ONE (10:45)
[2017-08-25] MEDS ORDERED: ROCURONIUM BROMIDE 10 MG/ML 5 ML VIAL IV ONE (10:45)
[2017-08-25] MEDS ORDERED: DEXAMETHASONE SOD INJ 4 MG/ML VIAL ONE (10:45)
[2017-08-25] MEDS ORDERED: GLYCOPYRROLATE INJ 0.2 MG/ML VIAL ONE (10:45)
--- NOTE | 2017-08-25 10:55 | DIAGNOSTIC IMAGING REPORT ---
ULTRASOUND RIGHT UPPER QUADRANT ABDOMEN CLINICAL HISTORY: Right upper quadrant abdominal pain.. COMPARISON STUDY: Abdominal CT dated 08/24/2017. Abdominal ultrasound dated 08/21/2017. TECHNIQUE: Real-time, grayscale, and color flow sonography of the right upper quadrant of the abdomen was performed. Images are reviewed in the transverse and longitudinal planes. FINDINGS: Liver: The liver is normal in size and echotexture. There is no intrahepatic biliary ductal dilatation. The main portal vein is patent. Gallbladder: Numerous calcified gallstones are identified. These are located throughout the gallbladder as well as in the gallbladder neck. The gallbladder wall is thickened and edematous, measuring up to 7 mm. No pericholecystic fluid is seen. A sonographic Cunningham's sign is reportedly absent. The common bile duct measures up to 0.4 cm in diameter. Pancreas: Visualized portions of the pancreatic head and body are normal in appearance. The splenic vein is patent. Right kidney: Survey images of the right kidney demonstrate normal size and echotexture. There is no hydronephrosis. Ascites: None. IMPRESSION: 1. Cholelithiasis with findings concerning for acute cholecystitis. 2. No intra or extrahepatic biliary ductal dilatation is identified. Electronically signed by: Gino Corado M.D. 08/25/2017 10:53 AM Dictated Date/Time: 08/25/2017 10:51 AM
[2017-08-25] MEDS ORDERED: EpHEDrine SULFATE INJ 50 MG/ML AMP IV PRN (11:00)
[2017-08-25] MEDS ORDERED: ATROPINE SULFATE 0.1 MG/ML 5ML SYR IV PRN (11:00)
[2017-08-25] MEDS ORDERED: PHENYLEPHRINE 100MCG/ML 5ML SYR IV PRN (11:00)
[2017-08-25] MEDS ORDERED: ONDANSETRON INJ 2 MG/ML 2 ML VIAL IV PRN (11:00)
[2017-08-25] MEDS ORDERED: SODIUM CHLORIDE 0.9% INJ 10 ML VIAL ONE (11:19)
[2017-08-25] MEDS ORDERED: KETOROLAC TROMETHAMINE 30 MG/ML VIAL ONE (14:37)
--- NOTE | 2017-08-25 15:04 | [facility] Post Operative Brief Note ---
Immediate Operative Summary Operative Date Aug 25, 2017. Pre-Operative Diagnosis Acute Cholecystitis, cholelithiasis Post-Operative Diagnosis Acute Cholecystitis, cholelithiasis Procedure(s) Performed Laparoscopic Cholecystectomy Surgeon Dr. Willard Director Group Sales Surgeon(s) ABIDA Pelaez Estimated Blood Loss 10 ml Findings Consistent with Post-Op Diagnosis acute cholecystitis Fluids (cc crystalloids) 800ml Specimens A. Gallbladder Drains None Anesthesia Type General Complication(s) none Disposition Accompanied Pt To Recover: yes Disposition: Recovery Room / PACU
[2017-08-25] MEDS ORDERED: OXYC-57 PO (15:11)
[2017-08-25] MEDS ORDERED: ACETAMINOPHEN 325 MG TAB PO PRN (15:15)
[2017-08-25] MEDS ORDERED: OXYCODONE/ACETAMINOPHEN 5-325 TAB PO PRN (15:15)
--- NOTE | 2017-08-25 15:16 | Discharge Instructions ---
Discharge Instructions Date of Service Aug 25, 2017. Admission Reason for Admission: Cholecystitis Discharge Discharge Diagnosis / Problem: same, gallstones Discharge Goals Goal(s): Decrease discomfort, Improve function Activity Recommendations Activity Limitations: as noted below No heavy lifting over 20 pounds for 3-4 weeks No strenuous activity until cleared by surgeon No submerging incisions underwater for 2 weeks (no bathing, swimming, or hot tubs) No driving while taking narcotic pain medication or until you are pain free . Instructions / Follow-Up Instructions / Follow-Up You may shower in 4 days. Sponge bath and wash hair in meantime. Try to keep dressings clean and dry. After 4 days, remove outer dressings and replace as needed Keep steri strips on incisions for 7 days and then remove. They may fall off on their own that is okay. Walking and light activity is encouraged. You will be given narcotic pain medication (Percocet) as needed for moderate to severe pain. You may take extra strength Tylenol as needed for mild pain however be cautious of how much Tylenol you take while taking Percocet as Percocet has Tylenol in it. Follow-up in surgical office in 1-2 weeks, please call office at [phone] to make an appointment. Current Hospital Diet Patient's current hospital diet: Discharge Diet Recommended Diet: Regular Diet Procedures Procedures Performed: Laparoscopic Cholecystectomy Pending Studies Studies pending at discharge: yes List of pending studies: Gallbladder pathology will be reviewed at follow up visit Medical Emergencies . Who to Call and When: Medical Emergencies: If at any time you feel your situation is an emergency, please call 911 immediately. . Non-Emergent Contact Non-Emergency issues call your: Primary Care Provider, Surgeon Call Non-Emergent contact if: you have a fever, temperature is above 101, your pain is not controlled, your pain is worsening, your pain is unusual for you, wound has increased drainage, wound has increased redness, wound has increased pain . "Provider Documentation" section prepared by Paris Rhodes. . VTE Core Measure Inpt VTE Proph given/why not?: SCD's [place] Drug Monitoring Program Search Results: patient reviewed within database, no issues identified
[2017-08-25] MEDS: HYDROmorphone INJ 1 MG/ML SYR IV PRN ×2 (15:32→15:38)
--- NOTE | 2017-08-25 15:51 | Anesthesiology Progress Note ---
Anesthesia Post Op Note Date & Time Aug 25, 2017 at 15:50 Vital Signs Pain Intensity: 3 Vital Signs Past 12 Hours Date Time Temp Pulse Resp B/P (MAP) Pulse Ox O2 Delivery O2 Flow Rate FiO2 08/25/17 15:45 84 13 122/84 100 Room Air 08/25/17 15:35 85 17 118/82 100 Room Air 08/25/17 15:25 75 18 105/60 100 Oxymask 10 08/25/17 15:15 74 18 103/53 97 Oxymask 10 08/25/17 15:08 36.7 75 21 96/50 94 Oxymask 10 08/25/17 07:30 Room Air 08/25/17 07:22 36.9 88 15 106/65 (79) 98 Room Air Notes Mental Status: alert / awake / arousable, participated in evaluation Pt Amnestic to Procedure: Yes Nausea / Vomiting: adequately controlled Pain: adequately controlled Airway Patency, RR, SpO2: stable & adequate BP & HR: stable & adequate Hydration State: stable & adequate Anesthetic Complications: no major complications apparent
--- NOTE | 2017-08-25 16:15 | OPERATIVE REPORT ---
DATE OF OPERATION: 08/25/2017 PREOPERATIVE DIAGNOSIS: Acute cholecystitis with cholelithiasis. POSTOPERATIVE DIAGNOSIS: Same. PROCEDURE: Laparoscopic cholecystectomy. SURGEON: Dr. Soren Willard. STRIPE MATCHER: ABIDA Cueto ANESTHESIA: General. ESTIMATED BLOOD LOSS: About 10 mL. FINDINGS: Acute cholecystitis, cholelithiasis. COMPLICATIONS: None. INDICATIONS FOR THE PROCEDURE: This is a 21-year-old female who presented to the ED with right upper quadrant pain. The patient had a CT and ultrasound showed acute cholecystitis with cholelithiasis and we decided to take the patient to the OR to do laparoscopic cholecystectomy, possible open, possible cholangiogram. I did talk to the patient about the benefit and risk, alternate to procedure. I indicated the risks may include but not limited such as bleeding, infection, injury to common bile duct, injury to bowel, bile leak, may need ERCP. The patient understands and she signed informed consent and I answered all questions. DETAILS OF PROCEDURE: We brought the patient in to the OR, put the patient in the supine position. The patient received SCDs on bilateral legs to prevent DVT. Also, the patient received 2 grams Ancef IV for prophylactic antibiotic. The patient received general anesthesia without difficulty. The abdomen was prepped and draped in routine sterile fashion. After a timeout, I injected local anesthesia by using 1% lidocaine mixed with 0.5% Marcaine just above umbilicus. I made a small incision just above umbilicus, opened fascia and opened peritoneum under direct vision. I put a Kayleen trocar in, connected to CO2 to create pneumoperitoneum. Flow rate at 6 liter per minute. Pressure not more than 14 mmHg. Once we get a nice pneumoperitoneum, we put the camera in to look around the abdomen showing normal finding on the stomach, small bowel, large bowel, liver; however, the gallbladder showing significant inflammation and edema with thickening on the gallbladder wall confirmed diagnosis of acute cholecystitis. Then I put another three 5 mm trocar on the right upper quadrant. Once all trocars in, I used a grasper to hold the base of the gallbladder, put direction to the diaphragm and put another grasper to hold the pouch over the gallbladder, put latter to expose the triangle of Calot. The cystic duct was identified and mobilized. I put two 5 mm metal clips on the proximal cystic duct, one on the distal cystic duct and we used scissor transection cystic duct and rechecked, no active bleeding, no bile leak, then we identified and mobilized the cystic artery. Then I put two 5 mm metal clips on the proximal cystic arterial wall on the distal cystic artery. We used a scissor transection to cystic artery, rechecked, no active bleeding. Then I used Bovie to take down the gallbladder from the liver bed without difficulty. Then we removed the gallbladder through the catch bag then I reinserted Kayleen trocar in, connected to CO2 to create pneumoperitoneum again and looked around the abdomen. No active bleeding, no bile leak from the liver bed and then we removed all trocars under direct vision. No active bleeding from trocar sites. The pneumoperitoneum was released, closed the umbilical fascial layer by 0 Vicryl [id number] x2, closed subcutaneous layer by using 2-0 Vicryl interrupted and closed skin by using 4-0 Vicryl continuous running, closed another three 5 mm trocar sites only by using 4-0 Vicryl. We put a dressing on. The patient tolerated the procedure well. All instrument, needle and sponge count correct x2 at the end of the case. The specimen sent to pathology. The patient then transferred to recovery room in stable condition. I attest to the content of the Intraoperative Record and any orders documented therein. Any exceptions are noted below. AIDE
[2017-08-25 16:30] VITALS: BP 122/77; PULSE 77; TEMP 36.4; O2SAT 96
[2017-08-25 17:01] VITALS: BP 123/77; PULSE 98; TEMP 36.4; O2SAT 97
[2017-08-25 17:58] VITALS: BP 122/75; PULSE 89; TEMP 36.9; O2SAT 96
[2017-08-25] MEDS: OXYCODONE/ACETAMINOPHEN 5-325 TAB PO PRN (18:22)
[2017-08-25 19:00] VITALS: BP 123/76; PULSE 95; TEMP 36.6; O2SAT 96
[2017-08-25 23:30] VITALS: BP 124/73; PULSE 81; TEMP 36.5; O2SAT 97
[2017-08-26] MEDS: LACTATED RINGER'S 1000ML 1,000 ML IV SCH (03:37)
[2017-08-26 03:56] VITALS: BP 117/71; PULSE 69; TEMP 36.6; O2SAT 98
[2017-08-26] MEDS ORDERED: CEFAZOLIN SOD 2000MG/15 ML IV PUSH IV ONE ×2 (06:00)
[2017-08-26] MEDS ORDERED: CEFAZOLIN 2000MG IV PUSH 15 ML IV SCH (06:00)
[2017-08-26 07:11] VITALS: BP 124/75; PULSE 69; TEMP 37; O2SAT 97
[2017-08-26] MEDS: OXYCODONE/ACETAMINOPHEN 5-325 TAB PO PRN (07:21)
--- NOTE | 2017-08-26 07:52 | Anesthesiology Progress Note ---
Anesthesia Post Op Note Date & Time Aug 26, 2017 at 07:51 Vital Signs Pain Intensity: 4.0 Vital Signs Past 12 Hours Date Time Temp Pulse Resp B/P (MAP) Pulse Ox O2 Delivery O2 Flow Rate FiO2 08/26/17 07:11 37.0 69 16 124/75 (91) 97 Room Air 08/26/17 03:56 36.6 69 16 117/71 (86) 98 Room Air 08/25/17 23:30 36.5 81 16 124/73 (90) 97 Room Air 08/25/17 23:15 Room Air Notes Mental Status: alert / awake / arousable, participated in evaluation Pt Amnestic to Procedure: Yes Nausea / Vomiting: adequately controlled Pain: adequately controlled Airway Patency, RR, SpO2: stable & adequate BP & HR: stable & adequate Hydration State: stable & adequate Anesthetic Complications: no major complications apparent
[2017-08-26 09:47] VITALS: BP 124/75; PULSE 69; TEMP 37; O2SAT 97
--- NOTE | 2017-08-29 13:28 | Discharge Summary ---
Discharge Summary Dates Admission Date / Time: Aug 24, 2017 at 21:01 Discharge Date: Aug 26, 2017 Dispostion / Condition Discharge Disposition: Home Condition at Discharge: Good Principal Diagnosis (1) Acute cholecystitis Problem List (1) No significant medical problems Consultations / Procedures Consultations: None Procedures: Laparoscopic cholecystectomy Pending Studies / Follow-Up Gallbladder pathology- will be reviewed at follow up visit Medication Reconciliation New Medications: Oxycodone/Acetaminophen 5MG/325MG (Percocet 5MG/325MG) Tab 1 TABLET PO Q4H PRN for Pain, #18 TAB Continued Medications: Control Pills ( Control Pills) Tab 1 TAB PO DAILY, TAB Admission HPI Per the Admitting provider: Pepper Bob is a pleasant 21 year-old female who originally presented to emergency room on Tuesday08/21/2017 with complaint of RUQ/epigastric abdominal pain with radiation to her back starting 10 pm on Tuesday. Associated nausea but no vomiting. States she had diarrhea starting on Tuesday as well. In normal state of health prior to Tuesday. Denies of any previous history of gallbladder problems or similar symptoms. She underwent ultrasound in the ER which showed cholelithiasis however no acute cholecystitis. Laboratory work-up within normal limits. She then presented back to emergency room last evening with the same complaint. Abdominal pain rated 8/10. Pain subsided on Tuesday but then came back again on Tuesday. Had Pizza one day. Occasional fatty/ greasy meals in the diet. History of kidney stones and gastric ulcer. No family history of gallbladder problems. Laboratory work-up in the ER again showed no leukocytosis, LFTS within normal limits. CT scan showed distended gallbladder with wall thickening and edema concerning for acute cholecystitis. She did also complain of left sided chest pain in the emergency department. Describes it as dull throbbing pain that comes and goes. Denies of chest pressure, shortness of breath, difficulty breathing, or palpitations. She had an EKG in the ER which showed normal sinus rhythm and Troponin within normal limits. D-dimer within normal limits Since admission she is feeling better. Pain rated 0-1/10 currently. Received pain medication which has helped. No further nausea or vomiting. Admission Exam Per the Admitting provider: General Appearance: WD/WN, no apparent distress Eyes: sclerae normal ENT: hearing grossly normal Neck: trachea midline Respiratory/Chest: lungs clear, normal breath sounds, no respiratory distress, no accessory muscle use Cardiovascular: regular rate, rhythm, no murmur Abdomen/GI: soft, no organomegaly, no pulsatile mass, + tenderness ( epigastrium and RUQ on mild palpation) Back: normal inspection Extremities/Musculoskelatal: normal inspection, no pedal edema Neurologic/Psych: alert, normal mood/affect, oriented x 3 Skin: normal color, warm/dry, no rash Hospital Course (1) Acute cholecystitis Patient was admitted to medical/surgical floor for observation overnight: Started on IV fluids, IV antibiotics, IV Pain medication and Zofran as needed for pain and nausea respectively, and kept NPO. Patient was evaluated in the morning and had mild RUQ abdominal pain, improved compared to the evening prior. She had a CT scan in the emergency room but no ultrasound. Ultrasound was ordered which showed gallstones and thickened gallbladder wall measuring 7 mm and common bile duct measuring up to 0.4 cm. She was taken to the operating room for laparoscopic cholecystectomy. Patient tolerated procedure well and was transferred to recovery room in stable condition. She was then transferred back to medical/surgical floor for post operative care. Diet was advanced to clear liquids and then as tolerated. PO pain medication was added with breakthrough IV Morphine. She was doing well immediately post op just drowsy. Pain controlled. She was able to be discharged after dinner if tolerated diet and pain controlled. She had some post op nausea in the evening so elected to stay overnight. Per nursing she did well with breakfast, pain controlled, and ambulating. She was discharged home on Hospital day # 2 and POD # 1 in stable condition. Discharge Instructions as given to patient Copies [facility]
== END 2017-08-26 10:59 | disposition home or self-care (01) ==
LOC: C.EDB 13:58 → ENRESERV 20:13 → C.MSN 21:01
PROVIDERS: ADMIT Surgery; ATTEND Surgery
DX: K80.12 Calculus of gallbladder with acute and chronic cholecystitis without obstruction (principal); K27.9 Peptic ulcer, site unspecified, unspecified as acute or chronic, without hemorrhage or perforation; Z79.3 Long term (current) use of hormonal contraceptives

== ENCOUNTER 2018-10-12 15:44 | Inpatient (IN) ==
[2018-10-12 16:52] LABS: Appearance Urine Clear (Clear); Bilirubin Urine Negative (Negative); Blood Urine Negative (Negative); Color Urine Yellow; Glucose Urine UA Negative (Negative); Ketones Urine Negative (Negative); Leukocyte Esterase Urine Negative (Negative); Nitrite Urine Negative (Negative); Protein Urine Negative (Negative); Specific Gravity Urine 1.014 (1.000-1.030); Urobilinogen Urine Negative (Negative)
[2018-10-12 17:15] LABS: Amphetamines+Metham, Urine Neg (Neg); Barbiturates, Urine Neg (Neg); Benzodiazepine, Urine Neg (Neg); Cocaine, Urine Neg (Neg); MDMA (Ecstacy), Urine Neg (Neg); Methadone, Urine Neg (Neg); Opiate, Urine Neg (Neg); Phencyclidine, Urine Neg (Neg)
[2018-10-12 18:14] LABS: Basophils # (auto) 0.01 K/uL (0-0.2); Basophils % (auto) 0.2 %; Eosinophils # (auto) 0.02 K/uL (0-0.5); Eosinophils % (auto) 0.3 %; Hematocrit (blood only) 38.9 % (37-47); Hemoglobin 13.6 g/dL (12.0-16.0); Immature Granulocytes # (auto) 0.02 K/uL (0.00-0.02); Immature Granulocytes % (auto) 0.3 %; Lymphocytes # (auto) 2.13 K/uL (1.2-3.4); Lymphocytes % (auto) 32.9 %; Mean Corpuscular Volume 86.1 fL (80-100); Mean Platelet Volume 11.5 fL (7.4-10.4); Monocytes # (auto) 0.26 K/uL (0.11-0.59); Neutrophils # (auto) 4.04 K/uL (1.4-6.5); Neutrophils % (auto) 62.3 %; Platelet Count 224 K/uL (130-400); RDW Coefficient of Variation 12.4 % (11.5-14.5); RDW Standard Deviation 39.5 fL (36.4-46.3); Red Blood Count 4.52 M/uL (4.2-5.4); White Blood Count 6.48 K/uL (4.8-10.8)
[2018-10-12 18:31] LABS: Albumin Level 3.7 gm/dl (3.4-5.0); BUN Creatinine Ratio 11.8 (10-20); Creatinine Clr Calc Pharmacy 102.7 ml/min; Est GFR (African American) 105.9; Est GFR (Non-African American) 91.4; Potassium 3.5 mmol/L (3.5-5.1)
[2018-10-12 18:37] LABS: Acetaminophen < 2 ug/ml (10-30); Salicylate < 1.7 mg/dl (2.8-20)
[2018-10-12 18:41] LABS: Albumin Globulin Ratio 0.9 (0.9-2); Bilirubin,Total 0.2 mg/dl (0.2-1); Globulin 4.3 gm/dl (2.5-4.0)
[2018-10-12 18:54] LABS: Pregnancy Test, Serum Negative (Negative)
[2018-10-12] MEDS ORDERED: SODIUM CHLORIDE 0.65% NA SOLN 45 ML (OCEAN) PRN (20:36)
[2018-10-12] MEDS ORDERED: ACETAMINOPHEN 325 MG TAB PO PRN (20:36)
[2018-10-12] MEDS ORDERED: LORazepam 1 MG TAB PO PRN (20:36)
[2018-10-12] MEDS ORDERED: BISMUTH SUBSALICYLATE PER ML OMNICELL CHARGE PO PRN (20:36)
[2018-10-12] MEDS ORDERED: ALUMINUM/MAGNESIUM SUSP 30 ML UDC PO PRN (20:36)
[2018-10-12] MEDS ORDERED: MAGNESIUM HYDROXIDE SUSP 30 ML UDC PO PRN (20:36)
--- NOTE | 2018-10-12 20:51 | Emergency Department Note ---
Entered by Paris Hughes acting as a scribe for Carolyn Palomares DO History of Present Illness General Chief complaint: Mental Health Evaluation Stated complaint: MENTAL HEALTH EVAL Time Seen by Provider: 10/12/18 16:05 Source: patient Mode of arrival: ambulatory Limitations: no limitations History of Present Illness Provider complaint: Mental health Onset (ago): hour(s) less than 1 Location: head Severity: moderate Maximum Pain Intensity: 0 Associated symptoms: + other (visual and auditory hallucinations) Patient is a 22 year old female presenting to the ED with mental health evaluation. Per nurses note, patient has been having auditory and visual commands and hallucinations. She notes that she is having thoughts of hurting herself and hurting her boyfriend for the past x2 weeks. She states that she was having thoughts of stabbing herself and him, but did not due to fear of going to penitentiary. She denies feeling being watched or followed. Patient notes she has been feeling anxious, crying more and having more panic attacks. She also notes that she has been seeing faces on inanimate objects, noting they were human faces but none she recognized. She notes the faces did not talk to her, urge her to do something or hurt her, but they were scary. She shares that she did start taking control in x2 months ago in July when her anxiety started, and has recently stopped as of x2 days ago. She notes that she did have strep throat in July and was placed on an antibiotic at the time, noting she is feeling much better. Patient denies alcohol use, recreational drug use, or smoking. Patient does agree to hospitalization for mental health, but is worried about losing her scholarship if she misses any classes. Home Medications Home Medications Medication Instructions Recorded Confirmed Type benzonatate 100 mg PO TID PRN 08/14/18 08/14/18 History cephalexin 500 mg PO BID 08/14/18 08/14/18 History levonorgestrel-ethinyl estrad 1 tab PO DAILY 08/14/18 08/14/18 History [Aubra EQ] Allergies Allergy/AdvReac Type Severity Reaction Status Date / Time ibuprofen Allergy Intermediate ulcers Verified 08/14/18 22:14 Past Med/Surg History Medical History Acute cholecystitis (Resolved) Surgical History No pertinent past surgical history Family History Other No pertinent family history Social History Preferred Language: Other Communication Ability: Effective Casey Saw Operator Required: No Beliefs That Will Affect Care: Voodoo (Yazdanism) and Cultural Feels Safe at Home: Yes Smoking Status: Never smoker Review of Systems See HPI for pertinent positives & negatives. and A total of 10 systems reviewed and were otherwise negative Physical Exam Vital Signs Vital Signs - 24 hr 10/13/18 21:51 10/14/18 06:53 10/14/18 10:35 Temperature 36.5 C 36.7 C Temperature Source Oral Oral Pulse Rate [Left Brachial] 104 H Pulse Rate [Right Brachial] 80 103 H Respiratory Rate 17 18 Respiratory Effort / Characteristics Non-Labored Spontaneous Non-Labored Spontaneous Respiratory Depth Normal Normal Respiratory Pattern Regular Regular Blood Pressure [Left Arm] 144/88 H 144/83 H 148/85 H Blood Pressure Mean [Left Arm] 106 103 106 Blood Pressure Position [Left Arm] Sitting Standing Sitting GENERAL: alert, well appearing, well nourished, no distress, non-toxic. Makes good eye contact. EYE EXAM: normal conjunctiva, PERRL and EOM's grossly intact OROPHARYNX: no exudate, no erythema, lips, buccal mucosa, and tongue normal and mucous membranes are moist NECK: supple, no nuchal rigidity, no adenopathy, non-tender LUNGS: Clear to auscultation. Normal chest wall mechanics HEART: no murmurs, S1 normal and S2 normal ABDOMEN: abdomen soft, non-tender, normo-active bowel sounds, no masses, no r ebound or guarding. BACK: Back is symmetrical on inspection and there is no deformity, no midline te nderness, no CVA tenderness. SKIN: no rashes and no bruising UPPER EXTREMITIES: upper extremities are grossly normal. FROM, nml pulses b/l. LOWER EXTREMITIES: No pitting edema. FROM, nml pulses b/l. NEURO EXAM: Normal sensorium, cranial nerves II-XII grossly intact, normal speech, no gross weakness of arms, no gross weakness of legs. PSYCH: Admits to hallucinations, SI and HI. Course 1611: Past medical records reviewed. The patient was evaluated in room A08, and a complete history and physical examination were performed. 2050: Updated by health pillowcase folder, patient will be admitted was [address] [place] [address]. Administered Medications Hydroxyzine HCl (Vistaril) 50 mg PO HSZ PRN PRN Reason: Insomnia Stop: 11/11/18 20:35 Last Admin: 10/13/18 23:39 Dose: 50 mg Documented by: [id number] Sertraline HCl (Zoloft) 50 mg PO QAM FRANKIE Stop: 11/13/18 08:59 Last Admin: 10/14/18 09:17 Dose: 50 mg Documented by: [id number] Discontinued Medications Sertraline HCl (Zoloft) 25 mg PO NOW ONE Stop: 10/13/18 15:01 Last Admin: 10/13/18 15:45 Dose: 25 mg Documented by: [id number] Medical Decision Making Differential Diagnosis Differential diagnosis: Etiologies such as mood disorder, infection, hypoglycemia, electrolyte abnormalities, cardiac sources, intracerebral event, toxicologic, neurologic, as well as others were entertained. Medical Records Attestation: I reviewed the patient's medical records. Home Medications Current Medication List: was personally reviewed by me Laboratory Data Attestation: I reviewed the patient's lab results. Result diagrams: 10/12/18 17:59 10/12/18 17:59 Lab Results 10/12/18 10/12/18 10/12/18 Range/Units 16:33 16:33 17:59 WBC 6.48 (4.8-10.8) K/uL RBC 4.52 (4.2-5.4) M/uL Hgb 13.6 (12.0-16.0) g/dL Hct 38.9 (37-47) % MCV 86.1 (80-100) fL MCH 30.1 (25-34) pg MCHC 35.0 (32-36) g/dL RDW Std Deviation 39.5 (36.4-46.3) fL RDW Coeff of Eric 12.4 (11.5-14.5) % Plt Count 224 (130-400) K/uL MPV 11.5 H (7.4-10.4) fL Immature Gran % (Auto) 0.3 % Neut % (Auto) 62.3 % Lymph % (Auto) 32.9 % [place] % (Auto) 4.0 % Eos % (Auto) 0.3 % Baso % (Auto) 0.2 % Immature Gran # (Auto) 0.02 (0.00-0.02) K/uL Neut # (Auto) 4.04 (1.4-6.5) K/uL Lymph # (Auto) 2.13 (1.2-3.4) K/uL [place] # (Auto) 0.26 (0.11-0.59) K/uL Eos # (Auto) 0.02 (0-0.5) K/uL Baso # (Auto) 0.01 (0-0.2) K/uL Sodium (136-145) mmol/L Potassium (3.5-5.1) mmol/L Chloride (98-107) mmol/L Carbon Dioxide (21-32) mmol/L Anion Gap (3-11) BUN (7-18) mg/dl Creatinine (0.6-1.2) mg/dl Est Cr Clr Drug Dosing ml/min Est GFR ( Amer) Est GFR (Non-Af Amer) BUN/Creatinine Ratio (10-20) Glucose (70-99) mg/dl Calcium (8.5-10.1) mg/dl Total Bilirubin (0.2-1) mg/dl AST (15-37) U/L ALT (12-78) U/L Alkaline Phosphatase (45-117) U/L Total Protein (6.4-8.2) gm/dl Albumin (3.4-5.0) gm/dl Globulin (2.5-4.0) gm/dl Albumin/Globulin Ratio (0.9-2) TSH (0.300-4.500) uIu/ml HCG, Qual (Negative) Urine Color Yellow Urine Appearance Clear (Clear) Urine pH 5.0 (4.5-7.5) Ur Specific Lafferty 1.014 (1.000-1.030) Urine Protein Negative (Negative) Urine Glucose (UA) Negative (Negative) Urine Ketones Negative (Negative) Urine Blood Negative (Negative) Urine Nitrite Negative (Negative) Urine Bilirubin Negative (Negative) Urine Urobilinogen Negative (Negative) Ur Leukocyte Esterase Negative (Negative) Salicylates (2.8-20) mg/dl Urine Opiates Screen Neg (Neg) Ur Methadone, Qual Neg (Neg) Acetaminophen (10-30) ug/ml Urine Barbiturates Neg (Neg) Ur Phencyclidine (PCP) Neg (Neg) U Amphetamin/Meth Scrn Neg (Neg) MDMA (Ecstasy) Screen Neg (Neg) U Benzodiazepines Scrn Neg (Neg) Ur Cocaine Metabolite Neg (Neg) U Marijuana (THC) Screen Neg (Neg) Ethyl Alcohol mg/dL (0-3) mg/dl 10/12/18 10/12/18 10/12/18 Range/Units 17:59 17:59 17:59 WBC (4.8-10.8) K/uL RBC (4.2-5.4) M/uL Hgb (12.0-16.0) g/dL Hct (37-47) % MCV (80-100) fL MCH (25-34) pg MCHC (32-36) g/dL RDW Std Deviation (36.4-46.3) fL RDW Coeff of Eric (11.5-14.5) % Plt Count (130-400) K/uL MPV (7.4-10.4) fL Immature Gran % (Auto) % Neut % (Auto) % Lymph % (Auto) % [place] % (Auto) % Eos % (Auto) % Baso % (Auto) % Immature Gran # (Auto) (0.00-0.02) K/uL Neut # (Auto) (1.4-6.5) K/uL Lymph # (Auto) (1.2-3.4) K/uL [place] # (Auto) (0.11-0.59) K/uL Eos # (Auto) (0-0.5) K/uL Baso # (Auto) (0-0.2) K/uL Sodium 139 (136-145) mmol/L Potassium 3.5 (3.5-5.1) mmol/L Chloride 106 (98-107) mmol/L Carbon Dioxide 27 (21-32) mmol/L Anion Gap 6.0 (3-11) BUN 11 (7-18) mg/dl Creatinine 0.89 (0.6-1.2) mg/dl Est Cr Clr Drug Dosing 102.7 ml/min Est GFR ( Amer) 105.9 Est GFR (Non-Af Amer) 91.4 BUN/Creatinine Ratio 11.8 (10-20) Glucose 128 H (70-99) mg/dl Calcium 9.0 (8.5-10.1) mg/dl Total Bilirubin 0.2 (0.2-1) mg/dl AST 23 (15-37) U/L ALT 36 (12-78) U/L Alkaline Phosphatase 76 (45-117) U/L Total Protein 8.0 (6.4-8.2) gm/dl Albumin 3.7 (3.4-5.0) gm/dl Globulin 4.3 H (2.5-4.0) gm/dl Albumin/Globulin Ratio 0.9 (0.9-2) TSH 1.270 (0.300-4.500) uIu/ml HCG, Qual (Negative) Urine Color Urine Appearance (Clear) Urine pH (4.5-7.5) Ur Specific Lafferty (1.000-1.030) Urine Protein (Negative) Urine Glucose (UA) (Negative) Urine Ketones (Negative) Urine Blood (Negative) Urine Nitrite (Negative) Urine Bilirubin (Negative) Urine Urobilinogen (Negative) Ur Leukocyte Esterase (Negative) Salicylates < 1.7 L (2.8-20) mg/dl Urine Opiates Screen (Neg) Ur Methadone, Qual (Neg) Acetaminophen < 2 L (10-30) ug/ml Urine Barbiturates (Neg) Ur Phencyclidine (PCP) (Neg) U Amphetamin/Meth Scrn (Neg) MDMA (Ecstasy) Screen (Neg) U Benzodiazepines Scrn (Neg) Ur Cocaine Metabolite (Neg) U Marijuana (THC) Screen (Neg) Ethyl Alcohol mg/dL < 3.0 (0-3) mg/dl 10/12/18 Range/Units 17:59 WBC (4.8-10.8) K/uL RBC (4.2-5.4) M/uL Hgb (12.0-16.0) g/dL Hct (37-47) % MCV (80-100) fL MCH (25-34) pg MCHC (32-36) g/dL RDW Std Deviation (36.4-46.3) fL RDW Coeff of Eric (11.5-14.5) % Plt Count (130-400) K/uL MPV (7.4-10.4) fL Immature Gran % (Auto) % Neut % (Auto) % Lymph % (Auto) % [place] % (Auto) % Eos % (Auto) % Baso % (Auto) % Immature Gran # (Auto) (0.00-0.02) K/uL Neut # (Auto) (1.4-6.5) K/uL Lymph # (Auto) (1.2-3.4) K/uL [place] # (Auto) (0.11-0.59) K/uL Eos # (Auto) (0-0.5) K/uL Baso # (Auto) (0-0.2) K/uL Sodium (136-145) mmol/L Potassium (3.5-5.1) mmol/L Chloride (98-107) mmol/L Carbon Dioxide (21-32) mmol/L Anion Gap (3-11) BUN (7-18) mg/dl Creatinine (0.6-1.2) mg/dl Est Cr Clr Drug Dosing ml/min Est GFR ( Amer) Est GFR (Non-Af Amer) BUN/Creatinine Ratio (10-20) Glucose (70-99) mg/dl Calcium (8.5-10.1) mg/dl Total Bilirubin (0.2-1) mg/dl AST (15-37) U/L ALT (12-78) U/L Alkaline Phosphatase (45-117) U/L Total Protein (6.4-8.2) gm/dl Albumin (3.4-5.0) gm/dl Globulin (2.5-4.0) gm/dl Albumin/Globulin Ratio (0.9-2) TSH (0.300-4.500) uIu/ml HCG, Qual Negative (Negative) Urine Color Urine Appearance (Clear) Urine pH (4.5-7.5) Ur Specific Lafferty (1.000-1.030) Urine Protein (Negative) Urine Glucose (UA) (Negative) Urine Ketones (Negative) Urine Blood (Negative) Urine Nitrite (Negative) Urine Bilirubin (Negative) Urine Urobilinogen (Negative) Ur Leukocyte Esterase (Negative) Salicylates (2.8-20) mg/dl Urine Opiates Screen (Neg) Ur Methadone, Qual (Neg) Acetaminophen (10-30) ug/ml Urine Barbiturates (Neg) Ur Phencyclidine (PCP) (Neg) U Amphetamin/Meth Scrn (Neg) MDMA (Ecstasy) Screen (Neg) U Benzodiazepines Scrn (Neg) Ur Cocaine Metabolite (Neg) U Marijuana (THC) Screen (Neg) Ethyl Alcohol mg/dL (0-3) mg/dl Blood Pressure Blood Pressure Findings: Elevated blood pressure MDM Narrative Patient well-appearing here, calm and cooperative. Patient with good insight into her condition and concerned about the atypical thought she is having. Patient agreeable with plan for admission for inpatient psychiatric management. Voluntary admission form signed. Patient admitted to 3 S. Impression & Plan Psychosis Discharge Plan Visit Data *Final* Discharge Date/Time: 10/12/18 21:03 Chief Complaint: Mental Health Evaluation Stated Complaint: MENTAL HEALTH EVAL ED Provider: Carolyn Palomares Discharge Problem: Psychosis Patient Disposition: Admitted As Inpatient Condition: Good Discharge Instructions Interventions: ED Discharge Assessment Last Done: 10/12/18 21:03 Discharge Problem: Psychosis Qualifiers: Psychosis type: unspecified psychosis type Qualified Code(s): F29 - Unspecified psychosis not due to a substance or known physiological condition The jeff's documentation has been prepared under my direction and personally reviewed by me in its entirety. I confirm that the note above accurately reflects all work, treatment, procedures, and medical decision making performed by me.
[2018-10-12 22:37] VITALS: O2SAT 99
--- NOTE | 2018-10-13 10:13 | History & Physical ---
Date of Service October 13, 2018 Impression / Recommendations Impression 22-year-old female admitted voluntarily for inpatient mental health treatment due to reported suicidal and homicidal ideation. Based on patient's reports, these ideations appear to be more consistent with unwanted intrusive thoughts, possibly suggestive of an obsessive-compulsive presentation. Other differentials for thoughts and illusions include depression with psychotic features; psychosis, NOS; PANDAS given recent strep infection, as well as possible organic causes associated with visual illusions/hallucinations. At this time, would not clearly describe patient's symptoms as visual hallucinations, and patient is clear that negative thoughts are not presented as voices. Given previous diagnoses of depression and anxiety, as well as need to gather additional information on possible OCD - trial of an SSRI was suggested. Discussed reasoning and differential with patient. Risks and benefits of sertraline and fluoxetine were reviewed. She reports willingness for trial of sertraline after review of side effects. Will give a 25mg dose now, with increase to 50mg qAM starting tomorrow. Given sudden onset of symptoms and risk of harm to self or boyfriend if condition is not improved, inpatient mental health treatment is deemed medically necessary at this time. Dr. Migue Orona was directly involved in review and discussion of the patient's case and participated in medical decision making regarding treatment recommendations. (1) Anxiety: 10/13 - differential includes: obsessive compulsive disorder, generalized anxiety disorder, panic disorder, symptoms may also be the start of a primary thought disorder or other organic cause - Initiate sertraline 25mg now; then increase to 50mg qAM - Denies intent to act on suicidal/homicidal thoughts but should remain on q15 minute checks for safety - Would be beneficial to gain collateral information from patient's boyfriend or family - Encourage participation in group and recreational programming - 1:1 counseling as needed - Encourage development of healthy and effective coping strategies - Suggesting family meeting to coordinate care prior to discharge (2) Depression: 10/13 - as above; clear depressive symptoms ongoing for at least 2 weeks - limited criteria for major depressive disorder - Gather additional information on mood/depressive symptoms from outpatient supports Depression Type: other depression Qualified Code(s): F32.89 - Other specified depressive episodes Inventory Assets Strengths: support of boyfriend, intelligence Needs: effective therapeutic and medication management, establish outpatient providers, development of effective coping strategies Risk Factors Assessment Male: No : No Do You Have Access To A Gun?: No Health Problems: No Mental Health Diagnoses: No Substance Use Disorders: No Previous Attempt: No Previous Psychiatric Hospitalization: No Hopelessness: No Smoker: No Protective Factors Assessment Advent Beliefs: Yes : No Responsible for Young Children: No Employed: Yes ([employer]) Stable Relationships: Yes Supportive Family: Yes Psychiatric History Identifying Data PEPPER ROSS is a 22-year-old F [employer] 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 Pt denies significant psychiatric history. She was admitted on 10/12/18 20:36 on a 201 voluntary commitment for suicidal and homicidial ideation. Chief Complaint "So, I've been doing therapy for anxiety. I went back on control and was having panic attacks three times a day". History of Present Illness Pepper Ross is a 22-year-old [facility] female currently attending [employer]. Pt is admitted for inpatient psychiatric treatment due to concern for suicidal and homicidal ideation and reports of visual illusions. Pt was brought the ED by her boyfriend and was voluntarily admitted for mental health treatment. Pt states she has been experiencing intrusive thoughts to harm her boyfriend for the past 2 weeks - these thought eventually evolved into instruction to harm herself. Pt states that the majority of her symptoms have been occurring in the past 2 weeks, since spring. Pt states her mood and motivation were low, causing her to feel overwhelmed about the amount of school work she should have been completing. Pt states she began having intrusive thoughts of - "grab a knife and stab your boyfriend, don't worry about if you will go to [facility], you can stab yourself too." Pt states these thoughts are not a voice speaking to her (from inside or outside her head), but also cannot say that they present as everyday thoughts. She states, "maybe somewhere in between, I don't know, it's difficult to describe." Pt states she has also started noticing visual illu sions of "scary faces, coming out of phillips and the floor". Pt admits these faces linger for as long as she is in the room, and do not occur solely during wake or sleep periods. Pt denies previous visual illusions of this kind - onset also within the past 2 weeks. Pt denies history of mental health diagnosis as a child or teen. She does admit to experiencing panic attacks in July 2017, shortly after restarting her OCP and also following Strep throat diagnosis. She states this anxiety resolved spontaneously over the course of that month. Pt states she had not experienced any psychiatric symptoms between that time and spring. She denies any substance use during that time, stating she and her boyfriend "stayed home and slept a lot." After the onset of anxiety and low mood, she reports seeking treatment through the [place]. She was diagnosed with "depression and anxiety" and was recommended to consider therapy and medications. Pt states she has had two therapy sessions this past week. For the past two weeks, patient has experienced low mood, decreased motivation, fatigue and increased desire to retreat to bed. She denies difficulty falling or staying asleep, change in appetite, hopelessness, or thoughts to harm herself or end her life. Pt reports a particularly traumatic year in 2011 when she had 3 family members pass within a 6-month period. In 2014, patient was living in the [facility] and learned of the passing of her grandmother. She reports ongoing anxiety each time she receives a call from her family - worried she will be told of another d zulma. Since this time, patient reports anxiety surrounding being a "perfectionist". She states, "sometimes I have thoughts, if I don't finish a task in time, something will happen, or I will do something and then need to wash my hands, or I'll have to cross the street right here or something will happen." Pt does not recall these kinds of thoughts as a child. She reports these "compulsions" were initially difficult to fight, but "it has gotten easier." Pt denies SI/HI, SIB, paranoia, nelson/hypomania, symptoms suggestive of a bipolar presentation, PTSD, eating disorder, and other specific psychiatric concerns. Past Psychiatric History Previous Psych History: No significant psychiatric history. Reports a total of 2 therapy sessions through [facility] within the last week. Current Psychiatric Diagnosis: Depression/Anxiety Do You Have Access To A Gun?: No Describe Attempts in the Past: None Past Head Trauma/Neuro History History of Concussion/Seizure: No Allergies Allergy/AdvReac Type Severity Reaction Status Date / Time ibuprofen Allergy Intermediate ulcers Verified 08/14/18 22:14 Home Medications Home Medications Medication Instructions Recorded Confirmed Type benzonatate 100 mg PO TID PRN 08/14/18 08/14/18 History cephalexin 500 mg PO BID 08/14/18 08/14/18 History levonorgestrel-ethinyl estrad 1 tab PO DAILY 08/14/18 08/14/18 History [Aubra EQ] Family History Family History of: None Alcohol History Hx of Alcohol Use Over the Past 12 Months: No Smoking Use Have You Smoked or Used Tobacco Products in the Last 30 Days: No Smoking Status: Never smoker Substance History Hx of Prescription Med Misuse Over the Past 12 Months: No Hx of Over the Counter Med Misuse Over the Past 12 Months: No Hx of Inhalent Misuse Over the Past 12 Months: No Hx of Organic Substance Use Over the Past 12 Months: No Hx of Illegal Substances/Street Drug Use Over Past 12 Months: No Problems as a Result of Past Substance Use: None Identified Personal History Living Arrangements: APartment Living Arrangements Comments: with her boyfriend Born In: [facility] Childhood: Reports happy childhood. 3 younger siblings, 2 brothers, 1 sister. Parents are . Highest Grade Completed: High School Graduate Highest Grade Completed Comment: Currently a Senior at 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) Marital Status: Living w/ Signif. Other Number Of Children: none Beliefs That Will Affect Care: Advent (Voodoo) and Cultural Current Legal Problems: No Hx Legal Problems: No Psychological Trauma History Comment: 2011 - trauma from 3 family members passing within 6 months Patient History Medical History Acute cholecystitis (Resolved) Surgical History No pertinent past surgical history Family History Other No pertinent family history Social History Preferred Language: Other Communication Ability: Effective Tankage Grinder Required: No Beliefs That Will Affect Care: Advent (Voodoo) and Cultural Feels Safe at Home: Yes Smoking Status: Never smoker Review of Systems Constitutional: reports fatigue; Strep throat in 07/2018 Cardiovascular: tachycardia with anxiety Respiratory: shortness of breath with anxiety Gastrointestinal: reports occasional heartburn Neurological: reports frequent frontal headaches accompanied by photosensitivity Integumentary: reports "rash" to back of hands bilaterally; newly developing hyperpigmented regions to hips bilaterally Psychiatric: denies symptoms other than stated above Total of at least 10 systems reviewed, pertinent positives as above and in HPI. Physical Exam Psychiatric Orientation: alert, oriented x 3 and cooperative Apperance: appropriately dressed, appropriately groomed and appeared stated age Eye Contact: good eye contact Motor Behavior: steady gait and station and no abnormal motor movements Speech: normal rate/rhythm/volume of speech Affect: + depressed affect (mildly) and + blunted affect Mood: + depressed mood ("I would say lower than usual" x 2 weeks) Thought Process: goal directed thought process, linear/logical thought process and clear/coherent thought process Thought Content: reality based without delusions Suicidal Thoughts: denies suicidal thoughts intrusive thoughts to harm herself, but denies intent to act Homicidal Thoughts: denies homicidal thoughts intrusive thoughts to harm boyfriend, but denies intent to act visual illusions of faces within phillips and floors Cognition: recent memory grossly intact, remote memory grossly intact, attention grossly intact and language grossly intact Estimated Intelligence: consistent with education level Insight: + limited insight Judgement: + limited judgement Vital Signs (Past 24 Hours) Last Vital Signs Temp 36.6 C 10/13/18 06:55 Pulse 79 10/13/18 06:56 Resp 16 10/13/18 06:55 BP 130/78 10/13/18 06:56 Pulse Ox 99 10/12/18 22:05 Results & Data Laboratory Results Laboratory Results - last 24 hr 10/12/18 10/12/18 10/12/18 16:33 16:33 17:59 WBC 6.48 RBC 4.52 Hgb 13.6 Hct 38.9 MCV 86.1 MCH 30.1 MCHC 35.0 RDW Std Deviation 39.5 RDW Coeff of Eric 12.4 Plt Count 224 MPV 11.5 H Immature Gran % (Auto) 0.3 Neut % (Auto) 62.3 Lymph % (Auto) 32.9 Henry % (Auto) 4.0 Eos % (Auto) 0.3 Baso % (Auto) 0.2 Immature Gran # (Auto) 0.02 Neut # (Auto) 4.04 Lymph # (Auto) 2.13 Henry # (Auto) 0.26 Eos # (Auto) 0.02 Baso # (Auto) 0.01 Sodium Potassium Chloride Carbon Dioxide Anion Gap BUN Creatinine Est Cr Clr Drug Dosing Est GFR ( Amer) Est GFR (Non-Af Amer) BUN/Creatinine Ratio Glucose Calcium Total Bilirubin AST ALT Alkaline Phosphatase Total Protein Albumin Globulin Albumin/Globulin Ratio TSH HCG, Qual Urine Color Yellow Urine Appearance Clear Urine pH 5.0 Ur Specific Alloy 1.014 Urine Protein Negative Urine Glucose (UA) Negative Urine Ketones Negative Urine Blood Negative Urine Nitrite Negative Urine Bilirubin Negative Urine Urobilinogen Negative Ur Leukocyte Esterase Negative Salicylates Urine Opiates Screen Neg Ur Methadone, Qual Neg Acetaminophen Urine Barbiturates Neg Ur Phencyclidine (PCP) Neg U Amphetamin/Meth Scrn Neg MDMA (Ecstasy) Screen Neg U Benzodiazepines Scrn Neg Ur Cocaine Metabolite Neg U Marijuana (THC) Screen Neg Ethyl Alcohol mg/dL 10/12/18 10/12/18 10/12/18 17:59 17:59 17:59 WBC RBC Hgb Hct MCV MCH MCHC RDW Std Deviation RDW Coeff of Eric Plt Count MPV Immature Gran % (Auto) Neut % (Auto) Lymph % (Auto) Henry % (Auto) Eos % (Auto) Baso % (Auto) Immature Gran # (Auto) Neut # (Auto) Lymph # (Auto) Henry # (Auto) Eos # (Auto) Baso # (Auto) Sodium 139 Potassium 3.5 Chloride 106 Carbon Dioxide 27 Anion Gap 6.0 BUN 11 Creatinine 0.89 Est Cr Clr Drug Dosing 102.7 Est GFR ( Amer) 105.9 Est GFR (Non-Af Amer) 91.4 BUN/Creatinine Ratio 11.8 Glucose 128 H Calcium 9.0 Total Bilirubin 0.2 AST 23 ALT 36 Alkaline Phosphatase 76 Total Protein 8.0 Albumin 3.7 Globulin 4.3 H Albumin/Globulin Ratio 0.9 TSH 1.270 HCG, Qual Urine Color Urine Appearance Urine pH Ur Specific Alloy Urine Protein Urine Glucose (UA) Urine Ketones Urine Blood Urine Nitrite Urine Bilirubin Urine Urobilinogen Ur Leukocyte Esterase Salicylates < 1.7 L Urine Opiates Screen Ur Methadone, Qual Acetaminophen < 2 L Urine Barbiturates Ur Phencyclidine (PCP) U Amphetamin/Meth Scrn MDMA (Ecstasy) Screen U Benzodiazepines Scrn Ur Cocaine Metabolite U Marijuana (THC) Screen Ethyl Alcohol mg/dL < 3.0 10/12/18 17:59 WBC RBC Hgb Hct MCV MCH MCHC RDW Std Deviation RDW Coeff of Eric Plt Count MPV Immature Gran % (Auto) Neut % (Auto) Lymph % (Auto) Henry % (Auto) Eos % (Auto) Baso % (Auto) Immature Gran # (Auto) Neut # (Auto) Lymph # (Auto) Henry # (Auto) Eos # (Auto) Baso # (Auto) Sodium Potassium Chloride Carbon Dioxide Anion Gap BUN Creatinine Est Cr Clr Drug Dosing Est GFR ( Amer) Est GFR (Non-Af Amer) BUN/Creatinine Ratio Glucose Calcium Total Bilirubin AST ALT Alkaline Phosphatase Total Protein Albumin Globulin Albumin/Globulin Ratio TSH HCG, Qual Negative Urine Color Urine Appearance Urine pH Ur Specific Alloy Urine Protein Urine Glucose (UA) Urine Ketones Urine Blood Urine Nitrite Urine Bilirubin Urine Urobilinogen Ur Leukocyte Esterase Salicylates Urine Opiates Screen Ur Methadone, Qual Acetaminophen Urine Barbiturates Ur Phencyclidine (PCP) U Amphetamin/Meth Scrn MDMA (Ecstasy) Screen U Benzodiazepines Scrn Ur Cocaine Metabolite U Marijuana (THC) Screen Ethyl Alcohol mg/dL Current Inpatient Medications Current Inpatient Medications: Current Inpatient Medications Acetaminophen (Tylenol) 650 mg PO Q4H PRN PRN Reason: Headache or Minor Fever Stop: 11/11/18 20:35 Al Hydrox/Mg Hydrox/Simethicone (Maalox) 30 ml PO Q4H PRN PRN Reason: GI Upset Stop: 11/11/18 20:35 Hydroxyzine HCl (Vistaril) 50 mg PO HSZ PRN PRN Reason: Insomnia Stop: 11/11/18 20:35 Hydroxyzine HCl (Vistaril) 25 mg PO Q4H PRN PRN Reason: Anxiety Stop: 11/11/18 20:35 Lorazepam (Ativan) 1 mg PO Q4H PRN PRN Reason: severe anxiety Stop: 11/11/18 20:35 Magnesium Hydroxide (Milk Of Magnesia) 30 ml PO DAILY PRN PRN Reason: Heartburn Stop: 11/11/18 20:35 Sodium Chloride (Garza Nasal) 1 - 2 sprays NA PRN PRN PRN Reason: Nasal Dryness/Congestion Stop: 11/11/18 20:35 CPT Code CPT Code Initial Hospital Care: 27532
[2018-10-13] MEDS ORDERED: SERTRALINE HCL 50 MG TABLET PO ONE (15:00)
--- NOTE | 2018-10-13 15:48 | Communication Note ---
Date of Service: October 13, 2018 I personally met with the patient today in order to assess her mental status, review the circumstances that had led to her psychiatric hospitalization, review her treatment plan, and coordinate any necessary changes in that plan. The patient describes the fairly recent onset of psychiatric symptoms. Although she initially described what sounded to some people like visual hallucinations, what she describes would more appropriately be termed visual illusions. She says that, like many other people, she cannot look at an object, such as the front of an automobile, and "see" a face, with the headlights representing eyes, the grill representing a nose or a mouth. She also reports that she had had intrusive, alien thoughts of causing physical harm to her boyfriend. She clarifies that these thoughts were not associated with any homicidal plan or intent. To the contrary, she reports that these thoughts are disturbing and puzzling to her. Further, the patient describes other features that are suggestive of obsessive-compulsive diets, with certain obsessive thoughts that are linked to compulsive behaviors. While these symptoms have been evident for some time now, she feels that they intensified fairly abruptly about 3 weeks ago following a Streptococcus infection, which in some instances has been associated with OCD symptoms. Patient also endorses symptoms of anxiety that have been present for approximately 4 years. The patient seems eager to participate in treatment and improve. Or, as above, she does experience intrusive thoughts of both suicide and homicide, she tells me that these thoughts are not associated with any related plan or intent to act. No delusional material was identified and the patient's thought contents. She has a number of strengths and coping mechanisms. The plan is to begin the patient on antiobsessional medications, namely sertraline 75 mg and titrate as necessary.
--- NOTE | 2018-10-14 07:54 | Psychiatric Progress Note ---
Date of Service October 14, 2018 Impression / Recommendations Impression Pt denies significant improvement from day of admission. She admits to what is described to be anxiety. We discussed that in time and with effective dose, her sertraline should be helpful in managing these symptoms, along with depressed mood and intrusive thoughts. Discussed availability of hydroxyzine for acute anxiety while on the unit. Pt was encouraged to trial if current physical symptoms should worsen. Risks and benefits of these medications were reviewed again at patient's request. Pt denies SI and states intrusive thoughts have not been present today; however, patient appears to be more labile today and mood may be mildly worse when compared to our encounter yesterday. Inpatient mental health admission remains medically necessary due to severity of condition, need for stability of mood, and high risk of harm to self or others (specifically boyfriend) if discharged prematurely. (1) Anxiety: 10/13 - differential includes: obsessive compulsive disorder, generalized anxiety disorder, panic disorder, symptoms may also be the start of a primary thought disorder or other organic cause - Initiate sertraline 25mg now; then increase to 50mg qAM - Denies intent to act on suicidal/homicidal thoughts but should remain on q15 minute checks for safety - Would be beneficial to gain collateral information from patient's boyfriend or family - Encourage participation in group and recreational programming - 1:1 counseling as needed - Encourage development of healthy and effective coping strategies - Suggesting family meeting to coordinate care prior to discharge 10/14 - Continue sertraline 50mg with monitoring for activation, consider titration as tolerated - Encouraged hydroxyzine for acute anxiety/sleep - Meeting scheduled with boyfriend for Tuesday at 10:00am (2) Depression: 10/13 - as above; clear depressive symptoms ongoing for at least 2 weeks - limited criteria for major depressive disorder - Gather additional information on mood/depressive symptoms from outpatient supports Inventory Assets Strengths: support of boyfriend, intelligence Needs: effective therapeutic and medication management, establish outpatient providers, development of effective coping strategies Risk Factors Assessment Male: No : No Do You Have Access To A Gun?: No Health Problems: No Mental Health Diagnoses: No Substance Use Disorders: No Previous Attempt: No Previous Psychiatric Hospitalization: No Hopelessness: No Smoker: No Protective Factors Assessment Episcopalian Beliefs: Yes : No Responsible for Young Children: No Employed: Yes ([employer]) Stable Relationships: Yes Supportive Family: Yes Interval History Identifying Information MONA ROSS is a 22-year-old F [employer] 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 Pt denies significant psychiatric history. She was admitted on 10/12/18 20:36 on a 201 voluntary commitment for suicidal and homicidial ideation. Chief Complaint "A little agitated, my heart is racing a lot". Review of Systems Notes Constitutional: reports feeling "agitated" and anxious Cardiovascular: chest pressure, tachycardia Respiratory: denied Gastrointestinal: denied Neurological: denied Psychiatric: denies symptoms other than stated above Total of at least 10 systems reviewed, pertinent positives as above and in HPI. Sleep Information Total Hours of Sleep: 4.5 Sleep Comments: pt. was anxious, shakey, hyperventilating, couldn't walk unassisted to her bed after falling to sleep in a chair in the day area. received prn vistaril for sleep aid/anxiety management-worried about med side effects. denied having any thoughts that would fuel her anxiety. eventually able to state she had concerns about a male peer and his delusional beliefs. she slept on a mat on the floor in the day area as this was more comforting for her- she wanted to be closer to staff Meal Information Percent Meal Consumed - Breakfast: 100 Percent Meal Consumed - Lunch: 100 Percent Meal Consumed - Dinner: 100 Subjective Subjective Patient was seen & assessed and interval progress reviewed with Nursing. Staff reports an event last evening in which the patient was unable to sleep, she was described as "somewhat histrionic", laying on the floor in the day area, and it was questioned if she was experiencing a panic attack. Pt accepted hydroxyzine after several offers and was eventually able to fall asleep. Pt was seen today to assess progress since admission. Pt states she is somewhat "agitated" today. Upon further evaluation patient states, "like anxious, kind of what I was feeling last night." Reviewed with patient prn medication availability as well as coping strategies to manage anxiety. Pt had additional questions regarding the safety of her medication regimen. She denies SI or intrusive thoughts encouraging self harm and harm to others. Physical Exam Psychiatric Orientation: alert, oriented x 3 and cooperative (superficially - somewhat more guarded today) Apperance: appropriately dressed and appropriately groomed Eye Contact: good eye contact Motor Behavior: steady gait and station and no abnormal motor movements Speech: normal rate/rhythm/volume of speech Affect: + depressed affect and + anxious affect Mood: + depressed mood and + anxious mood ("a little agitated") Thought Process: goal directed thought process, linear/logical thought process and clear/coherent thought process Thought Content: reality based without delusions Suicidal Thoughts: denies suicidal thoughts Homicidal Thoughts: denies homicidal thoughts Hallucinations: no auditory hallucinations and no visual hallucinations Cognition: recent memory grossly intact, remote memory grossly intact, attention grossly intact and language grossly intact Estimated Intelligence: consistent with education level Insight: + limited insight Judgement: + limited judgement Vital Signs (Past 24 Hours) Last Vital Signs Temp 36.7 C 10/14/18 06:53 Pulse 104 H 10/14/18 06:53 Resp 18 10/14/18 06:53 BP 144/83 H 10/14/18 06:53 Pulse Ox 99 10/12/18 22:05 Results & Data Current Inpatient Medications Current Inpatient Medications: Current Inpatient Medications Acetaminophen (Tylenol) 650 mg PO Q4H PRN PRN Reason: Headache or Minor Fever Stop: 11/11/18 20:35 Al Hydrox/Mg Hydrox/Simethicone (Maalox) 30 ml PO Q4H PRN PRN Reason: GI Upset Stop: 11/11/18 20:35 Hydroxyzine HCl (Vistaril) 50 mg PO HSZ PRN PRN Reason: Insomnia Stop: 11/11/18 20:35 Last Admin: 10/13/18 23:39 Dose: 50 mg Documented by: Hydroxyzine HCl (Vistaril) 25 mg PO Q4H PRN PRN Reason: Anxiety Stop: 11/11/18 20:35 Lorazepam (Ativan) 1 mg PO Q4H PRN PRN Reason: severe anxiety Stop: 11/11/18 20:35 Magnesium Hydroxide (Milk Of Magnesia) 30 ml PO DAILY PRN PRN Reason: Heartburn Stop: 11/11/18 20:35 Sertraline HCl (Zoloft) 50 mg PO QAM FRANKIE Stop: 11/13/18 08:59 Sodium Chloride (Juana Diaz Nasal) 1 - 2 sprays NA PRN PRN PRN Reason: Nasal Dryness/Congestion Stop: 11/11/18 20:35 Post Discharge Appointments Primary Care Physician Name Of Family Doctor: NIKA Primary Care Provider Appointment Comment: [facility] Therapist Name of Therapist: [facility] Ravi Curtis Therapist's Date of Therapist Appointment: 10/19/18 Time of Therapist Appointment: 11 am Therapy Appointment Comment: [facility] [address], [address], [place] [address] Legislative Correspondent Name of Legislative Correspondent: Bertha MAHER Contact Information Discharge Discharge Address: [address] [place] [address], [address], [place] [address] CPT Code CPT Code 45221 (1) Depression Depression Type: other depression Qualified Code(s): F32.89 - Other specified depressive episodes
[2018-10-14] MEDS: SERTRALINE HCL 50 MG TABLET PO SCH (09:17)
--- NOTE | 2018-10-15 08:54 | Psychiatric Progress Note ---
Date of Service October 15, 2018 Impression / Recommendations Impression Pt feeling some improvement in mood and anxiety today. She is feeling more comfortable on the unit and is participating actively in treatment. We continue to discuss treatment plan, and it was recommended that sertraline be increased to 100mg daily. Pt was willing for this adjustment. She denies ongoing intrusive thoughts while here on the unit. Given thoughts of harm to self and boyfriend on admission, will need to discuss concerns with patient's boyfriend before considering discharge. Meeting scheduled for tomorr morning. Inpatient mental health admission remains medically necessary due to severity of condition, need for stability of mood, and high risk of harm to self or others (specifically boyfriend) if discharged prematurely. (1) Anxiety: 10/13 - differential includes: obsessive compulsive disorder, generalized anxiety disorder, panic disorder, symptoms may also be the start of a primary thought disorder or other organic cause - Initiate sertraline 25mg now; then increase to 50mg qAM - Denies intent to act on suicidal/homicidal thoughts but should remain on q15 minute checks for safety - Would be beneficial to gain collateral information from patient's boyfriend or family - Encourage participation in group and recreational programming - 1:1 counseling as needed - Encourage development of healthy and effective coping strategies - Suggesting family meeting to coordinate care prior to discharge 10/14 - Continue sertraline 50mg with monitoring for activation, consider titration as tolerated - Encouraged hydroxyzine for acute anxiety/sleep - Meeting scheduled with boyfriend for Tuesday at 10:00am 10/15 - Increase sertraline to 100mg daily starting tomorr morning - Meeting with boyfriend Tuesday morning (2) Depression: 10/13 - as above; clear depressive symptoms ongoing for at least 2 weeks - limited criteria for major depressive disorder - Gather additional information on mood/depressive symptoms from outpatient supports Inventory Assets Strengths: support of boyfriend, intelligence Needs: effective therapeutic and medication management, establish outpatient providers, development of effective coping strategies Risk Factors Assessment Male: No : No Do You Have Access To A Gun?: No Health Problems: No Mental Health Diagnoses: No Substance Use Disorders: No Previous Attempt: No Previous Psychiatric Hospitalization: No Hopelessness: No Smoker: No Protective Factors Assessment Roman Catholic Beliefs: Yes : No Responsible for Young Children: No Employed: Yes ([employer]) Stable Relationships: Yes Supportive Family: Yes Interval History Identifying Information MONA ROSS is a 22-year-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 Pt denies significant psychiatric history. She was admitted on 10/12/18 20:36 on a 201 voluntary commitment for suicidal and homicidial ideation. Chief Complaint "Today has been pretty good I think". Review of Systems Notes Constitutional: muscle tension last evening Cardiovascular: denied Respiratory: denied Gastrointestinal: denied Neurological: denied Psychiatric: denies symptoms other than stated above Total of at least 10 systems reviewed, pertinent positives as above and in HPI. Sleep Information Total Hours of Sleep: 7.5 Sleep Comments: received a prn of ativan before bed Meal Information Percent Meal Consumed - Breakfast: 100 Percent Meal Consumed - Lunch: 90 Percent Meal Consumed - Dinner: 90 Subjective Subjective Patient was seen & assessed and interval progress reviewed with Nursing. Staff report that the patient continued to express some anxiety and tension last evening. She has attempted to call her mother, but still does not want a formal meeting with her. Meeting scheduled with boyfriend for tomorrow morning. Pt was seen today to assess progress since admission. She states today has been better, reporting much less anxiety and feeling more comfortable on the unit. She reports feeling that she has been benefiting from her admission. We discussed expectation that titration and continuation of sertraline will likely be effective, she is willing to increase dose to 100mg tomorrow morning. Pt denies ongoing intrusive thoughts to harm her boyfriend or herself, but safety measures will need to be discussed during the meeting with her boyfriend. Physical Exam Psychiatric Orientation: alert, oriented x 3 and cooperative (superficially - somewhat more guarded today) Apperance: appropriately dressed, appropriately groomed and appeared stated age Eye Contact: good eye contact Motor Behavior: steady gait and station and no abnormal motor movements Speech: normal rate/rhythm/volume of speech Affect: + depressed affect (appears to be improving, appearing less anxious today) "good, I'm feeling better today" Thought Process: goal directed thought process, linear/logical thought process and clear/coherent thought process Thought Content: reality based without delusions Suicidal Thoughts: denies suicidal thoughts Homicidal Thoughts: denies homicidal thoughts Hallucinations: no auditory hallucinations and no visual hallucinations Cognition: recent memory grossly intact, remote memory grossly intact, attention grossly intact and language grossly intact Estimated Intelligence: consistent with education level Insight: + fair insight Judgement: + fair judgement Vital Signs (Past 24 Hours) Last Vital Signs Temp 36.9 C 10/15/18 06:46 Pulse 105 H 10/15/18 06:46 Resp 16 10/15/18 06:46 BP 131/85 10/15/18 06:46 Pulse Ox 99 10/12/18 22:05 Results & Data Current Inpatient Medications Current Inpatient Medications: Current Inpatient Medications Acetaminophen (Tylenol) 650 mg PO Q4H PRN PRN Reason: Headache or Minor Fever Stop: 11/11/18 20:35 Al Hydrox/Mg Hydrox/Simethicone (Maalox) 30 ml PO Q4H PRN PRN Reason: GI Upset Stop: 11/11/18 20:35 Hydroxyzine HCl (Vistaril) 50 mg PO HSZ PRN PRN Reason: Insomnia Stop: 11/11/18 20:35 Last Admin: 10/13/18 23:39 Dose: 50 mg Documented by: Hydroxyzine HCl (Vistaril) 25 mg PO Q4H PRN PRN Reason: Anxiety Stop: 11/11/18 20:35 Last Admin: 10/14/18 19:37 Dose: 25 mg Documented by: Lorazepam (Ativan) 1 mg PO Q4H PRN PRN Reason: severe anxiety Stop: 11/11/18 20:35 Last Admin: 10/14/18 21:06 Dose: 1 mg Documented by: Magnesium Hydroxide (Milk Of Magnesia) 30 ml PO DAILY PRN PRN Reason: Heartburn Stop: 11/11/18 20:35 Sertraline HCl (Zoloft) 50 mg PO QAM FRANKIE Stop: 11/13/18 08:59 Last Admin: 10/14/18 09:17 Dose: 50 mg Documented by: Sodium Chloride (Volin Nasal) 1 - 2 sprays NA PRN PRN PRN Reason: Nasal Dryness/Congestion Stop: 11/11/18 20:35 Post Discharge Appointments Primary Care Physician Name Of Family Doctor: [facility] Primary Care Provider Appointment Comment: [facility] Psychiatrist Name of Psychiatrist: [facility] Psychiatrist's Psychiatric Appointment Comment: [address], [place] [address] Therapist Name of Therapist: [facility] - Kirsten Slater Therapist's Date of Therapist Appointment: 10/19/18 Time of Therapist Appointment: 11 am Therapy Appointment Comment: [address] , [address], [place] [address] Director Ehs Name of Director Ehs: Bertha MAHER Contact Information Discharge Discharge Address: [address] [place] [address], [address], [place] [address] CPT Code CPT Code 55358 (1) Depression Depression Type: other depression Qualified Code(s): F32.89 - Other specified depressive episodes
[2018-10-15] MEDS: SERTRALINE HCL 50 MG TABLET PO SCH (09:22)
[2018-10-16 07:05] VITALS: BP 128/82; PULSE 93; TEMP 98.2
[2018-10-16] MEDS ORDERED: SERTRALINE HCL 50 MG TABLET PO SCH (09:00)
--- NOTE | 2018-10-16 11:56 | Discharge Summary ---
Date of Service October 16, 2018 History of Present Illness Pepper Chilel is a 22-year-old [facility] female currently attending [employer]. Pt is admitted for inpatient psychiatric treatment due to concern for suicidal and homicidal ideation and reports of visual illusions. Pt was brought the ED by her boyfriend and was voluntarily admitted for mental health treatment. Pt states she has been experiencing intrusive thoughts to harm her boyfriend for the past 2 weeks - these thought eventually evolved into instruction to harm herself. Pt states that the majority of her symptoms have been occurring in the past 2 weeks, since spring. Pt states her mood and motivation were low, causing her to feel overwhelmed about the amount of school work she should have been completing. Pt states she began having intrusive thoughts of - "grab a knife and stab your boyfriend, don't worry about if you will go to shelter, you can stab yourself too." Pt states these thoughts are not a voice speaking to her (from inside or outside her head), but also cannot say that they present as everyday thoughts. She states, "maybe somewhere in between, I don't know, it's difficult to describe." Pt states she has also started noticing visual illusions of "scary faces, coming out of phillips and the floor". Pt admits these faces linger for as long as she is in the room, and do not occur solely during wake or sleep periods. Pt denies previous visual illusions of this kind - onset also within the past 2 weeks. Pt denies history of mental health diagnosis as a child or teen. She does admit to experiencing panic attacks in July 2017, shortly after restarting her OCP and also following Strep throat diagnosis. She states this anxiety resolved spontaneously over the course of that month. Pt states she had not experienced any psychiatric symptoms between that time and spring. She denies any substance use during that time, stating she and her boyfriend "stayed home and slept a lot." After the onset of anxiety and low mood, she [facility]. She was diagnosed with "depression and anxiety" and was recommended to consider therapy and medications. Pt states she has had two therapy sessions this past week. For the past two weeks, patient has experienced low mood, decreased motivation, fatigue and increased desire to retreat to bed. She denies difficulty falling or staying asleep, change in appetite, hopelessness, or thoughts to harm herself or end her life. Pt reports a particularly traumatic year in 2011 when she had 3 family members pass within a 6-month period. In 2014, patient was living in the [place] and learned of the passing of her grandmother. She reports ongoing anxiety each time she receives a call from her family - worried she will be told of another . Since this time, patient reports anxiety surrounding being a "perfectio nist". She states, "sometimes I have thoughts, if I don't finish a task in time, something will happen, or I will do something and then need to wash my hands, or I'll have to cross the street right here or something will happen." Pt does not recall these kinds of thoughts as a child. She reports these "compulsions" were initially difficult to fight, but "it has gotten easier." Pt denies SI/HI, SIB, paranoia, nelson/hypomania, symptoms suggestive of a bipolar presentation, PTSD, eating disorder, and other specific psychiatric concerns. Physical Exam Psychiatric Orientation: alert and cooperative Apperance: appropriately dressed, appropriately groomed and appeared stated age Eye Contact: good eye contact Motor Behavior: steady gait and station and no abnormal motor movements Speech: normal rate/rhythm/volume of speech Affect: + blunted affect "Pretty good." Thought Process: goal directed thought process and linear/logical thought process Thought Content: reality based without delusions Suicidal Thoughts: denies suicidal thoughts Homicidal Thoughts: denies homicidal thoughts Hallucinations: no auditory hallucinations and no visual hallucinations Cognition: recent memory grossly intact, attention grossly intact and language grossly intact Estimated Intelligence: consistent with education level Insight: good insight Judgement: good judgement Vital Signs (Past 24 Hours) Last Vital Signs Temp 36.8 C 10/16/18 07:03 Pulse 93 H 10/16/18 07:04 Resp 16 10/16/18 07:03 BP 128/82 10/16/18 07:04 Pulse Ox 99 10/12/18 22:05 Principal Diagnosis Obsessive-compulsive disorder Psychiatric Data The patient was hospitalized for 4 days. She was started on sertraline, which was increased to 100 mg daily, and was utilizing hydroxyzine for sleep and anxiety. Anxiety and intrusive thoughts improved, she consistently denied thoughts of harming herself or anyone else, and stated that she never wanted to act on these thoughts, but had been distraught by them. She attended and participated in groups and therapy on the unit, was performing ADLs independently, and met one-on-one with counselors. She was provided with education about techniques for managing anxiety. She reported experiences of illusions, at times seeing faces in things, but with good insight that they were not really there. She was referred for outpatient psychiatric care and case management, and plan to continue with her current therapist. She had a family meeting with her boyfriend the day of discharge, during which she discussed her primary stressors, including academics and family conflict. Her boyfriend stated she does not often communicate about her family issues, and he would like her to be more open about this. She also talked about the need for healthy sleep and leisure activities, and her discharge plans. Her boyfriend was aware of the intrusive thoughts to harm him and herself that the patient experienced prior to admission, and they discussed her safety plan with respect to these thoughts. He said that he never felt in danger from her and did not think she would ever harm him, and felt comfortable with discharge. It was noted that she had limited awareness of her cognitive distortions, including assuming, projecting, and perfectionism influenced her anxiety, and would benefit from ongoing therapy to address this. Day of Discharge Assessment Staff report the patient is reporting improved anxiety, resolution of intrusive thoughts to harm herself and others, has been attending and participating appropriately in groups, eating well, taking medications, and engaging in treatment. On my assessment, she reports mood is improved, anxiety is improved, and she is no longer experiencing intrusive thoughts or illusions. She is able to review her discharge safety plan, feels she has good support from her boyfriend and therapist, and is willing to follow up with an outpatient psychiatrist. She is requesting discharge today, denies any safety concerns with discharge, and denies any side effects to medications. Transition of Care Transition Of Care Record: was reviewed with the patient Advance Directives Advance Directives Information Provided: Yes Advance Directives: No Mental Health Advance Directive: No Advance Directives on File: No Living Will: No Power of Scouring Train Operator Chief: No Advance Directives Reason:: Declines as Mental Health Visit. Risk Factors Assessment Risk factors mitigated by admission to the inpatient unit, use of medications to target mood and anxiety symptoms, psychoeducation about her diagnosis and treatment recommendations, involvement in groups and therapy, working on healthy coping skills and a discharge safety plan, referring her for outpatient psychiatric care, and a family meeting with her boyfriend whom she lives with. She has demonstrated improvement in intrusive thoughts, is denying thoughts of harming herself or others, and is willing to follow up with outpatient treatment. She is completing ADLs independently, had a meeting with her boyfriend who denied safety concerns with discharge, and is requesting discharge. As she is no longer at acute risk of harm to herself or others, she can be discharged and managed as an outpatient at this time. Male: No : No Do You Have Access To A Gun?: No Health Problems: No Mental Health Diagnoses: No Substance Use Disorders: No Previous Attempt: No Previous Psychiatric Hospitalization: No Hopelessness: No Smoker: No Protective Factors Assessment Restorationism Beliefs: Yes : No Responsible for Young Children: No Employed: Yes ([employer]) Stable Relationships: Yes Supportive Family: Yes Tobacco Cessation at Discharge Tobacco Cessation Medication Prescribed at Discharge: Not Applicable/Non-Smoker Total Time Total Time Spent: Greater Than 30 Minutes Total Time Includes: Examination of the patient, Discharge Planning and Medication Reconciliation Discharge Data Lab Results 10/12/18 10/12/18 10/12/18 16:33 16:33 17:59 WBC 6.48 RBC 4.52 Hgb 13.6 Hct 38.9 MCV 86.1 MCH 30.1 MCHC 35.0 RDW Std Deviation 39.5 RDW Coeff of Eric 12.4 Plt Count 224 MPV 11.5 H Immature Gran % (Auto) 0.3 Neut % (Auto) 62.3 Lymph % (Auto) 32.9 Lanier % (Auto) 4.0 Eos % (Auto) 0.3 Baso % (Auto) 0.2 Immature Gran # (Auto) 0.02 Neut # (Auto) 4.04 Lymph # (Auto) 2.13 Lanier # (Auto) 0.26 Eos # (Auto) 0.02 Baso # (Auto) 0.01 Sodium Potassium Chloride Carbon Dioxide Anion Gap BUN Creatinine Est Cr Clr Drug Dosing Est GFR ( Amer) Est GFR (Non-Af Amer) BUN/Creatinine Ratio Glucose Calcium Total Bilirubin AST ALT Alkaline Phosphatase Total Protein Albumin Globulin Albumin/Globulin Ratio TSH HCG, Qual Urine Color Yellow Urine Appearance Clear Urine pH 5.0 Ur Specific [place] 1.014 Urine Protein Negative Urine Glucose (UA) Negative Urine Ketones Negative Urine Blood Negative Urine Nitrite Negative Urine Bilirubin Negative Urine Urobilinogen Negative Ur Leukocyte Esterase Negative Salicylates Urine Opiates Screen Neg Ur Methadone, Qual Neg Acetaminophen Urine Barbiturates Neg Ur Phencyclidine (PCP) Neg U Amphetamin/Meth Scrn Neg MDMA (Ecstasy) Screen Neg U Benzodiazepines Scrn Neg Ur Cocaine Metabolite Neg U Marijuana (THC) Screen Neg Ethyl Alcohol mg/dL 10/12/18 10/12/18 10/12/18 17:59 17:59 17:59 WBC RBC Hgb Hct MCV MCH MCHC RDW Std Deviation RDW Coeff of Eric Plt Count MPV Immature Gran % (Auto) Neut % (Auto) Lymph % (Auto) Lanier % (Auto) Eos % (Auto) Baso % (Auto) Immature Gran # (Auto) Neut # (Auto) Lymph # (Auto) Lanier # (Auto) Eos # (Auto) Baso # (Auto) Sodium 139 Potassium 3.5 Chloride 106 Carbon Dioxide 27 Anion Gap 6.0 BUN 11 Creatinine 0.89 Est Cr Clr Drug Dosing 102.7 Est GFR ( Amer) 105.9 Est GFR (Non-Af Amer) 91.4 BUN/Creatinine Ratio 11.8 Glucose 128 H Calcium 9.0 Total Bilirubin 0.2 AST 23 ALT 36 Alkaline Phosphatase 76 Total Protein 8.0 Albumin 3.7 Globulin 4.3 H Albumin/Globulin Ratio 0.9 TSH 1.270 HCG, Qual Urine Color Urine Appearance Urine pH Ur Specific [place] Urine Protein Urine Glucose (UA) Urine Ketones Urine Blood Urine Nitrite Urine Bilirubin Urine Urobilinogen Ur Leukocyte Esterase Salicylates < 1.7 L Urine Opiates Screen Ur Methadone, Qual Acetaminophen < 2 L Urine Barbiturates Ur Phencyclidine (PCP) U Amphetamin/Meth Scrn MDMA (Ecstasy) Screen U Benzodiazepines Scrn Ur Cocaine Metabolite U Marijuana (THC) Screen Ethyl Alcohol mg/dL < 3.0 10/12/18 17:59 WBC RBC Hgb Hct MCV MCH MCHC RDW Std Deviation RDW Coeff of Eric Plt Count MPV Immature Gran % (Auto) Neut % (Auto) Lymph % (Auto) Lanier % (Auto) Eos % (Auto) Baso % (Auto) Immature Gran # (Auto) Neut # (Auto) Lymph # (Auto) Lanier # (Auto) Eos # (Auto) Baso # (Auto) Sodium Potassium Chloride Carbon Dioxide Anion Gap BUN Creatinine Est Cr Clr Drug Dosing Est GFR ( Amer) Est GFR (Non-Af Amer) BUN/Creatinine Ratio Glucose Calcium Total Bilirubin AST ALT Alkaline Phosphatase Total Protein Albumin Globulin Albumin/Globulin Ratio TSH HCG, Qual Negative Urine Color Urine Appearance Urine pH Ur Specific [place] Urine Protein Urine Glucose (UA) Urine Ketones Urine Blood Urine Nitrite Urine Bilirubin Urine Urobilinogen Ur Leukocyte Esterase Salicylates Urine Opiates Screen Ur Methadone, Qual Acetaminophen Urine Barbiturates Ur Phencyclidine (PCP) U Amphetamin/Meth Scrn MDMA (Ecstasy) Screen U Benzodiazepines Scrn Ur Cocaine Metabolite U Marijuana (THC) Screen Ethyl Alcohol mg/dL Hospital Course (1) Anxiety: 10/13 - differential includes: obsessive compulsive disorder, generalized anxiety disorder, panic disorder, symptoms may also be the start of a primary thought disorder or other organic cause - Initiate sertraline 25mg now; then increase to 50mg qAM - Denies intent to act on suicidal/homicidal thoughts but should remain on q15 minute checks for safety - Would be beneficial to gain collateral information from patient's boyfriend or family - Encourage participation in group and recreational programming - 1:1 counseling as needed - Encourage development of healthy and effective coping strategies - Suggesting family meeting to coordinate care prior to discharge 10/14 - Continue sertraline 50mg with monitoring for activation, consider titration as tolerated - Encouraged hydroxyzine for acute anxiety/sleep - Meeting scheduled with boyfriend for Tuesday at 10:00am 10/15 - Increase sertraline to 100mg daily starting tomorrow morning - Meeting with boyfriend Tuesday morning (2) Depression: 10/13 - as above; clear depressive symptoms ongoing for at least 2 weeks - limited criteria for major depressive disorder - Gather additional information on mood/depressive symptoms from outpatient supports Post Discharge Appointments Primary Care Physician Name Of Family Doctor: [facility] Time of Appointment with PCP: follow up as needed. Provider Appointment Comment: [address] [place] [address] Psychiatrist Name of Psychiatrist: [facility] Psychiatrist's Psychiatric Appointment Comment: [address], [place] [address] Therapist Name of Therapist: [facility] - Kirsten Slater Therapist's Date of Therapist Appointment: 10/19/18 Time of Therapist Appointment: 11 am Therapy Appointment Comment: [address] , [address], [place] [address] Police Justice Name of Police Justice: [facility] Phone Number for Police Justice: [phone] Date of Appointment with Police Justice: 10/19/18 Time of Appointment with Police Justice: 3pm Case Management Appointment Comment: [address] [place] [address] Smoking Cessation Counseling Tobacco Cessation Medication Prescribed at Discharge: Not Applicable/Non-Smoker Contact Information Discharge Discharge Address: [address] [place] [address], [address], [place] [address] Discharge Plan Discharge Items Patient Disposition: Home - Self-Care Reason For Visit: PSYCHOSIS NOS Discharge Diagnosis: Obsessive Compulsive Disorder Condition: Good Discharge Goals: Decrease discomfort, Improve disease control, Improve function, Learn about illness, Specific goals and Therapeutic intervention Specific Goals: refer to outpatient treatment Activity: Per 'Additional Instructions' section Non-emergency contact: Psychiatrist and Therapist Call non-emergency contact if: you have any medication questions and your symptoms worsen Follow-up/Referrals: [facility] [Primary Care Provider] - Diet: Regular Addtl Provider Instructions: SPECIAL CARE INSTRUCTIONS: 1. Follow through with your scheduled aftercare appointments. If unable to keep an appointment, please call to reschedule. 2. Take your medication only as prescribed. Medication should not be changed or stopped without the approval of your doctor. In the event of worsening symptoms or concerns about side effects, contact your doctor immediately. 3. Utilize new healthy coping skills, anger management skills, and stress management skills learned during your hospitalization. Journal feelings and process them with a support person. Identify stressors or situations that may result in relapse, deterioration or inappropriate behaviors and develop a plan to deal with those issues. 4. If your coping skills are ineffective and you are in crisis, contact your outpatient providers for direction. If unable to reach your providers, please call the CAN HELP LINE AT or go to the closest Emergency Room. 5. Avoid alcohol and un-prescribed drugs. 6. You have been provided with the Mental Health Advance Directives Pamphlet for your review. AFTERCARE APPOINTMENTS: * Please call your insurance company prior to your scheduled appointment to confirm your aftercare providers are covered. Take your insurance information to your appointments. WHO TO CALL AND WHEN: Medical Emergencies: For questions or emergencies related to your hospital stay, please contact the Inpatient Behavioral Health Unit at [phone]. A stonecutter apprentice hand is on-call 14/02 for the Behavioral Health Unit for emergencies At any time you feel your situation is an emergency, you may also call 911 immediately. Your Doctors Instructions noted above were prepared by provider Kiara Osman MD. Prescriptions: New sertraline 100 mg tablet 100 mg PO QAM Qty: 30 RF: 0 hydroxyzine HCl 25 mg Tablet 50 mg PO UD PRN (Reason: anxiety or sleep) Qty: 45 RF: 0 Continued levonorgestrel-ethinyl estrad 0.1-20 mg-mcg tablet 1 tab PO DAILY RF: 0 benzonatate 100 mg capsule 100 mg PO TID PRN (Reason: Cough) RF: 0 Discontinued cephalexin 500 mg capsule 500 mg PO BID RF: 0 Stand-Alone Forms: [facility] Discharge Orders: Discharge Order (Routine); Ordered 10/16/18 Ordered By: Kiara Osman Admission Data Admit Date/Time: 10/12/18 20:36 Attending Provider: Kiara Osman Admit Provider: Jamshid Alonso I Primary Care Provider: [facility] Service: Psychiatry Other Interventions: PSY Interdisciplinary Discharge Planning Last Done: 10/16/18 10:54 Pending Studies at Discharge: No
== END 2018-10-16 15:50 | disposition home or self-care (01) | DRG 882 ==
LOC: ED 15:44 → 3S 20:36